=== PATIENT | female | born 1945 | race Caucasian/White ===

== ENCOUNTER 2024-07-31 19:49 | Inpatient (IN) ==
[2024-07-31 20:36] LABS: Hematocrit (blood only) 17.7 % (37.0-47.0); Hemoglobin 5.1 g/dl (12.0-16.0); Mean Corpuscular Hemoglobin 25.8 pg (25.0-34.0); Mean Corpuscular Hgb Conc 28.8 g/dL (32.0-36.0); Mean Corpuscular Volume 89.4 fL (80.0-100.0); Platelet Count 123 K/uL (130-400); RDW Coefficient of Variation 17.2 % (11.5-14.5); RDW Standard Deviation 55.1 fL (36.4-46.3); Red Blood Count 1.98 M/uL (4.20-5.40); White Blood Count 6.16 K/ul (4.8-10.8)
[2024-07-31] MEDS ORDERED: SODIUM CHLORIDE 0.9% 100 ML IV PRN (20:37)
[2024-07-31] MEDS ORDERED: SODIUM CHLORIDE 0.9% 50 ML IV PRN (20:37)
[2024-07-31 20:55] LABS: Alanine Aminotransferase 12 U/L (7-52); Albumin Globulin Ratio 1.3 (0.9-2); Albumin Level 3.4 gm/dl (3.4-5.0); Alkaline Phosphatase 92 U/L (34-104); Anion Gap 8 (3-11); Aspartate Aminotransferase 15 U/L (13-39); BUN Creatinine Ratio 12.3 (10-20); Bilirubin,Total 0.7 mg/dl (0.2-1.0); Blood Urea Nitrogen 46 mg/dl (6-23); Calcium 8.8 mg/dl (8.6-10.3); Carbon Dioxide 22 mmol/L (21-32); Chloride 110 mmol/L (98-107); Globulin 2.7 gm/dl (2.5-4.0); Glucose 410 mg/dl (70-99(Fasting)); Potassium 4.7 mmol/L (3.5-5.1); Sodium 140 mmol/L (136-145); Total Protein 6.1 gm/dl (6.0-8.3); Troponin I High Sensitivity 19.1 pg/ml (0-14)
[2024-07-31 20:59] LABS: INR 1.1 (0.9-1.1); Partial Thromboplastin Ratio 0.9; Partial Thromboplastin Time 24 Seconds (21-31); Prothrombin Time 11.4 Seconds (9.0-12.0)
--- NOTE | 2024-07-31 21:02 | Emergency Department Note ---
Impression & Plan Acute upper gastrointestinal bleeding, Anemia requiring transfusions, Thrombocytopenia, Non-ST elevation [place] (NSTEMI), CROCKETT (dyspnea on exertion), Generalized weakness, Acute kidney injury superimposed on chronic kidney disease, Hyperglycemia ED Provider Note HISTORY OF PRESENT ILLNESS: Patient is an 79-year-old female presenting with shortness of breath with exertion and bilateral lower extremity weakness. Patient reports for about the last week she has been having bilateral lower extremity weakness when she is up walking around. Reports that when she is up and walking, she is able to take only a couple steps before she becomes very weak and feels like she needs to sit down. Reports that when she is up and walking she is only able to take a few steps before she becomes significantly winded. States that she has no chest pain with the shortness of breath. Denies any shortness of breath at rest. She states that she has noted intermittent dark discoloration of her stool. She states that a few weeks ago she noticed this and took an at-home Cologuard test and it was positive. Her and her outpatient doctor were working on coordinating getting a colonoscopy set up, but they have not successfully scheduled this yet given the patient's multiple comorbidities. Patient denies any abdominal pain, nausea or vomiting. She is on Eliquis for history of paroxysmal A-fib. She does report she took her Eliquis today. Denies any dysuria or hematuria. Denies any fevers. Denies any recent sick contact exposures. ROS: as above PHYSICAL EXAM: Constitutional: Patient appears in no acute distress. HENT: Head: Normocephalic and atraumatic. Eyes: EOMI, PERRL Mouth/Throat: Mucous membranes moist. Neck: Trachea midline. Neck supple. Cardiovascular: RRR, No murmurs, rubs or gallops. Intact distal pulses. Pulmonary/Chest: No respiratory distress. Breath sounds clear and equal bilaterally. No wheezes or rales. Abdominal: Abdomen soft, no tenderness, rebound or guarding. Rectal: Chaperoned by nurse Nadine. No palpable masses or hemorrhoids on examination. No renae blood or melena. Hemoccult positive. Musculoskeletal: No edema, tenderness or deformity noted. Skin: Warm and dry. No rash, erythema, pallor or cyanosis Psychiatric: Appropriate mood and affect for situation. Neurological: Alert and keenly responsive. CN II-XII grossly intact, moving all extremities equally and fully. MDM: - Vitals signs showed hypertension. - History obtained via patient. History as above. - Chronic conditions affecting care: HTN; HLD; Afib; CKD; DM-2 - Differential diagnoses include, but are not limited to: CVA; intracranial hemorrhage; ACS; pneumonia; viral syndrome; anemia - Order placed for continuous cardiac monitoring. At this time, monitor showed rate of 80 bpm with normal sinus rhythm, per my interpretation. - External medical records reviewed. Nephrology office visit note dated 04/23/2024 was reviewed. Patient follows in their clinic for her CKD stage IV. Her baseline creatinine is 2.5-3.3. - EKG interpreted by myself showed normal sinus rhythm. Rate 74 bpm. QT 430. No acute ischemic changes. - Laboratory workup interpreted by myself showed normal WBC; anemia (Hgb 5.1); thrombocytopenia (plt 123); normal PT/INR; stable electrolyte; MANUEL CKD (Cr 3.74 - baseline around 3.3); hyperglycemia (glucose 410); elevated BUN (46); elevated troponin (19.1); normal TSH - Elevated troponin likely more demand in nature secondary to patient's profound anemia. - CXR negative for pneumonia, per my interpretation. - Viral respiratory panel negative - Patient was consented for blood. 2 units PRBCs were ordered to transfuse now. - 80 mg IV protonix ordered. - Discussion was had with case work aide about patient's case and need for admission - Hospitalist, Dr. Blas, consulted for admission. Requested that Dr. Miles be consulted for reversal agent, given patient's apixaban dosing in the setting of her GI bleed. - Discussed case with Dr. Miles at 22:35. [facility]. I have personally spent 63 minutes of critical care time in the direct management of this patient. This includes bedside care, interpretation of diagnostic studies, and testing, discussion with consultants, patient, and family members, and other required patient management activities. This 63 minutes is in excess of all separately billable procedures. ASSESSMENT AND PLAN: Diagnosis: acute upper GI bleed; anemia requiring transfusion; generalized weakness; dyspnea on exertion; MANUEL on CKD; NSTEMI; thrombocytopenia; hyperglycemia Plan: admit Past Med/Surg History Problem List (Updated 07/31/24 @ 22:52 by Chely Gray MD) Hyperglycemia (Acute) Acute kidney injury superimposed on chronic kidney disease (Acute) Generalized weakness (Acute) CROCKETT (dyspnea on exertion) (Acute) Non-ST elevation [place] (NSTEMI) (Acute) Thrombocytopenia (Acute) Anemia requiring transfusions (Acute) Acute upper gastrointestinal bleeding (Acute) Gout Type 2 diabetes mellitus with hyperglycemia Diabetic nephropathy Proteinuria, unspecified Secondary hyperparathyroidism Chronic kidney disease, stage 3b Hyperlipidemia Glaucoma Hypertension Medical History Chronic kidney disease, stage 3b Diabetic nephropathy Glaucoma Gout Hyperlipidemia Hypertension Proteinuria, unspecified Secondary hyperparathyroidism Type 2 diabetes mellitus with hyperglycemia Surgical History H/O tubal ligation History of hysterectomy Hx of cardiac cath Family History Father Black lung Mother Alzheimer disease Dementia Sister Dialysis patient Social History Smoking Status: Never smoker Hx Alcohol Use: No Hx Substance Use: No Preferred Language: Jordanian marital status: / current occupational status: retired How many Children do You have: 4 Feels Safe at Home: Yes caffeine: Yes (1-2 cups per day) Allergies Allergies Allergy/AdvReac Type Severity Reaction Status Date / Time amlodipine [From [facility]] Allergy Unknown LE edema Verified 03/05/24 14:18 glp 1 AdvReac Intermediate GI Uncoded 03/05/24 14:18 jardiance AdvReac Intermediate uti Uncoded 03/05/24 14:18 Home Meds Home Medications Medication Instructions Recorded Confirmed aspirin 81 mg chewable tablet 81 mg PO DAILY 04/16/21 04/23/24 cholecalciferol (vitamin D3) 50 50 mcg PO DAILY 04/16/21 04/23/24 mcg (2,000 unit) capsule insulin aspart U-100 100 unit/mL 1 sliding scale dose subcut 04/16/21 04/23/24 subcutaneous solution (Novolog USEASDIRECTD U-100 Insulin aspart) latanoprost 0.005 % eye drops 1 drp ophthalmic (eye) DAILY 04/16/21 04/23/24 mometasone 0.1 % topical cream 1 applic topical DAILY PRN 04/16/21 04/23/24 terconazole 0.4 % vaginal cream 1 appful vaginal QPM PRN 04/16/21 04/23/24 terazosin 2 mg capsule 2 mg PO DAILY 04/27/21 04/23/24 insulin degludec 100 unit/mL (3 50 unit subcut DAILY 10/26/21 04/23/24 mL) subcutaneous pen (Tresiba FlexTouch U-100 insulin) atorvastatin 20 mg tablet 80 mg PO DAILY 10/17/23 04/23/24 febuxostat 40 mg tablet (Uloric) 40 mg PO 3XWK 12/12/23 04/23/24 carvedilol 12.5 mg tablet See Rx Instructions PO BID 03/05/24 04/23/24 furosemide 20 mg tablet 20 mg PO 3XWK edema 03/05/24 04/23/24 nifedipine 90 mg tablet,extended 30 mg PO DAILY 03/05/24 04/23/24 release apixaban 2.5 mg tablet (Eliquis) 2.5 mg PO BID Afib 03/25/24 04/23/24 coenzyme Q10 75 mg capsule (Ultra 50 mg PO DAILY 04/23/24 04/23/24 CoQ10) garlic 300 mg capsule 1,000 mg PO BID 04/23/24 04/23/24 Previous Rx's Medication Instructions Recorded calcitriol 0.25 mcg capsule 0.25 mcg PO .COMPLEX #36 caps 12/12/23 patiromer calcium sorbitex 8.4 8.4 g PO DAILY #30 ea 03/25/24 gram oral powder packet lisinopril 5 mg tablet 5 mg PO DAILY #90 tabs 04/23/24 Results & Data (ED) Vital Signs Vital Signs - 24 hr 07/31/24 19:53 07/31/24 20:52 Temperature 36.9 C Temperature Source Temporal Artery Scan Pulse Rate 73 78 Respiratory Rate 18 Respiratory Effort / Characteristics Non-Labored Spontaneous Respiratory Depth Normal Blood Pressure 171/69 H Blood Pressure Mean 103 Pulse Oximetry 98 Oxygen Delivery Method Room Air Sepsis Recent Fever Within 48 Hours No Sepsis New/Unexplained Change in Mental Status No Sepsis Action Taken by Nursing No Action Required Laboratory Data 07/31/24 20:04 07/31/24 20:04 Lab Results 07/31/24 07/31/24 07/31/24 Range/Units 20:04 21:04 21:35 WBC 6.16 (4.8-10.8) K/ul RBC 1.98 L (4.20-5.40) M/uL Hgb 5.1 L* (12.0-16.0) g/dl Hct 17.7 L* (37.0-47.0) % MCV 89.4 (80.0-100.0) fL MCH 25.8 (25.0-34.0) pg MCHC 28.8 L (32.0-36.0) g/dL RDW Std Deviation 55.1 H (36.4-46.3) fL RDW Coeff of [place] 17.2 H (11.5-14.5) % Plt Count 123 L (130-400) K/uL MPV 12.0 (9.4-12.4) fL Immature Gran % (Auto) 0.6 % Neut % (Auto) 78.4 % Lymph % (Auto) 14.0 % [place] % (Auto) 5.7 % Eos % (Auto) 1.0 % Baso % (Auto) 0.3 % Neut # (Auto) 4.83 (1.40-6.50) K/uL Lymph # (Auto) 0.86 L (1.20-3.40) K/uL [place] # (Auto) 0.35 (0.11-0.59) K/uL Eos # (Auto) 0.06 (0.00-0.50) K/uL Baso # (Auto) 0.02 (0.00-0.20) K/uL Immature Gran # (Auto) 0.04 (0.01-0.20) K/uL Polychromasia 1+ Microcytosis Present PT 11.4 (9.0-12.0) Seconds INR 1.1 (0.9-1.1) APTT 24 (21-31) Seconds PTT Ratio 0.9 Sodium 140 (136-145) mmol/L Potassium 4.7 (3.5-5.1) mmol/L Chloride 110 H (98-107) mmol/L Carbon Dioxide 22 (21-32) mmol/L Anion Gap 8 (3-11) BUN 46 H (6-23) mg/dl Creatinine 3.74 H (0.6-1.2) mg/dl Est Cr Clr Drug Dosing Not Reportable eGFR 11.62 BUN/Creatinine Ratio 12.3 (10-20) Glucose 410 H* (70-99(Fasting)) mg/dl Calcium 8.8 (8.6-10.3) mg/dl Magnesium 2.0 (1.7-2.4) mg/dl Total Bilirubin 0.7 (0.2-1.0) mg/dl AST 15 (13-39) U/L ALT 12 (7-52) U/L Alkaline Phosphatase 92 (34-104) U/L Troponin I High Sens 19.1 H (0-14) pg/ml Total Protein 6.1 (6.0-8.3) gm/dl Albumin 3.4 (3.4-5.0) gm/dl Globulin 2.7 (2.5-4.0) gm/dl Albumin/Globulin Ratio 1.3 (0.9-2) TSH 0.925 (0.300-4.500) uIu/ml POC Stool Occult Blood Positive A (Negative) Adenovirus (PCR) Not Detected (NotDetected) B. pertussis DNA (PCR) Not Detected (NotDetected) B.parapertussis DNA PCR Not Detected (NotDetected) C. pneumoniae DNA (PCR) Not Detected (NotDetected) Coronavirus OC43 (PCR) Not Detected (NotDetected) Coronavirus HKU1 (PCR) Not Detected (NotDetected) Coronavirus 229E (PCR) Not Detected (NotDetected) SARS-CoV-2 (PCR) Not Detected (NotDetected) Coronavirus NL63 (PCR) Not Detected (NotDetected) Human Metapneumovir PCR Not Detected (NotDetected) Influenza Type A (PCR) Not Detected (NotDetected) Influenza Type B (PCR) Not Detected (NotDetected) M. pneumoniae (PCR) Not Detected (NotDetected) Parainfluenza 1 (PCR) Not Detected (NotDetected) Parainfluenza 2 (PCR) Not Detected (NotDetected) Parainfluenza 3 (PCR) Not Detected (NotDetected) Parainfluenza 4 (PCR) Not Detected (NotDetected) RSV (PCR) Not Detected (NotDetected) Entero/Rhino (PCR) Not Detected (NotDetected) Crossmatch See Detail Discharge Plan Visit Data Chief Complaint: Weakness Stated Complaint: WEAKNESS, FATIGUED, FLUCTUATING BP ED Provider: Chely Gray Discharge Problem: Acute upper gastrointestinal bleeding, Anemia requiring transfusions, Thrombocytopenia, Non-ST elevation [place] (NSTEMI), CROCKETT (dyspnea on exertion), Generalized weakness, Acute kidney injury superimposed on chronic kidney disease, Hyperglycemia Forms Stand Alone Forms: [facility] [employer] Prescriptions Prescriptions: No Action patiromer calcium sorbitex 8.4 gram powder in packet 8.4 g PO DAILY Qty: 30 2RF Eliquis 2.5 mg tablet 2.5 mg PO BID terazosin 2 mg capsule 2 mg PO DAILY cholecalciferol (vitamin D3) 50 mcg (2,000 unit) capsule 50 mcg PO DAILY mometasone 0.1 % cream 1 applic topical DAILY PRN terconazole 0.4 % cream 1 appful vaginal QPM PRN latanoprost 0.005 % drops 1 drp ophthalmic (eye) DAILY insulin aspart U-100 [Novolog U-100 Insulin aspart] 100 unit/mL solution 1 sliding scale dose subcut USEASDIRECTD aspirin 81 mg tablet,chewable 81 mg PO DAILY Tresiba FlexTouch U-100 100 unit/mL (3 mL) insulin pen 50 unit subcut DAILY atorvastatin 20 mg tablet 80 mg PO DAILY febuxostat [Uloric] 40 mg tablet 40 mg PO 3XWK garlic 300 mg capsule 1,000 mg PO BID nifedipine 90 mg tablet extended release 30 mg PO DAILY furosemide 20 mg tablet 20 mg PO 3XWK calcitriol 0.25 mcg capsule 0.25 mcg PO .COMPLEX Qty: 36 2RF Rx Instructions: 0.25 mcg orally every monday, monday, and monday; carvedilol 12.5 mg tablet See Rx Instructions PO BID Rx Instructions: 25 mg QAM and 12.5 mg in the evening; must administer with a meal/food Ultra CoQ10 75 mg capsule 50 mg PO DAILY lisinopril 5 mg tablet 5 mg PO DAILY Qty: 90 3RF Referrals Referrals: Uriel Patel [Outside Practitioners] -
[2024-07-31 21:05] LABS: Thyroid Stimulating Hormone 0.925 uIu/ml (0.300-4.500)
[2024-07-31 21:28] LABS: Adenovirus PCR Not Detected (NotDetected); Bordetella parapertussis PCR Not Detected (NotDetected); Bordetella pertussis PCR Not Detected (NotDetected); Chlamydia pneumoniae PCR Not Detected (NotDetected); Coronavirus 229E PCR Not Detected (NotDetected); Coronavirus CoV-2 (COVID19)PCR Not Detected (NotDetected); Coronavirus HKU1 PCR Not Detected (NotDetected); Coronavirus NL63 PCR Not Detected (NotDetected); Coronavirus OC43PCR Not Detected (NotDetected); Human Metapneumovirus PCR Not Detected (NotDetected); Influenza A PCR Not Detected (NotDetected); Influenza B PCR Not Detected (NotDetected); Mycoplasma pneumoniae PCR Not Detected (NotDetected); Parainfluenza Virus 1 PCR Not Detected (NotDetected); Parainfluenza Virus 2 PCR Not Detected (NotDetected); Parainfluenza Virus 3 PCR Not Detected (NotDetected); Parainfluenza Virus 4 PCR Not Detected (NotDetected); Respiratory Syncytial VirusPCR Not Detected (NotDetected); Rhinovirus/Enterovirus PCR Not Detected (NotDetected)
[2024-07-31 22:18] LABS: Basophils # (auto) 0.02 K/uL (0.00-0.20); Basophils % (auto) 0.3 %; Eosinophils # (auto) 0.06 K/uL (0.00-0.50); Immature Granulocytes # (auto) 0.04 K/uL (0.01-0.20); Immature Granulocytes % (auto) 0.6 %; Lymphocytes # (auto) 0.86 K/uL (1.20-3.40); Microcytosis Present; Monocytes # (auto) 0.35 K/uL (0.11-0.59); Monocytes % (auto) 5.7 %; Neutrophils # (auto) 4.83 K/uL (1.40-6.50); Neutrophils % (auto) 78.4 %; Polychromasia 1+
[2024-07-31] MEDS: KCENTRA (500unit vial) 2000 units IVP IV SCH (23:11)
[2024-07-31] MEDS: PANTOprazole 80 MG in DEXTROSE 5% 100 ML IV STA (23:20)
--- NOTE | 2024-07-31 23:38 | History & Physical Report ---
Date of Service July 31, 2024 Assessment & Plan (1) Anemia requiring transfusions: (2) Type 2 diabetes mellitus with hyperglycemia: (3) Acute kidney injury superimposed on chronic kidney disease: (4) Generalized weakness: Plan Prachi Rosa is a 79 year-old female with a medical history significant for CKD, gout, T2DM, HTN, paroxysmal atrial fibrillation who presented to the ED for weakness in her bilateral legs for the past week. Anemia | GI Bleed | Iron Deficiency -Hgb 5.1 in ED, hemoccult positive and patient reports dark stools and positive cologuard since starting Eliquis a few months ago for paroxysmal atrial fibrillation -ED provider discussed with anti-coagulation clinic, Kcentra ordered and given in ED -Signed blood consent obtained in ED, located in paper chart -2 units PRBCs ordered, will recheck H&H after 1 unit and q6h after completion of ordered PRBCs. -Will keep NPO, Protonix IV BID ordered. GI consulted, appreciate recommendations -Elevated BNP on admission, may require small dose of Lasix after transfusions. No maintenance IV fluids indicated in the meantime while BP remaining stable -Iron studies obtained prior to transfusion, iron: 15, transferrin % sat: 4. Consider supplementing with IV venofer. MANUEL on CKD -Follows with Dr. Reed/[facility] Nephrology -Baseline Cr 2.5-3.3, Cr today was 3.74 -BNP elevated 558 in ED, +2 pitting edema of bilateral lower legs, is prescribed PRN Lasix by cardiology -Avoid nephrotoxic medications -Home meds include Lisinopril, Lokelma CAD | S/P Pacemaker Placement | Paroxysmal Atrial Fibrillation -Follows with Dr. Hernandez and Dr. Childress -Per last nephrology note, last echo (2023) showed LVEF 55-60%. -Has known carotid stenosis, this is monitored regularly and per patient no plans for intervention at this time -Continue statin, lisinopril. Takes Lasix PRN. May need to further med rec with patient- reports not consistently taking BP meds and unsure if still taking nifedipine, carvedilol -Hold aspirin, Eliquis -Will require cardiology follow up for plan for anticoagulation moving forward Elevated Troponin -Trop 19.1, likely due to demand ischemia from anemia -Trend to peak. Monitor on telemetry, currently asymptomatic Type 2 DM -Insulin dependent at home -Hyperglycemic in ED, BSG 410 -Will order lantus (at reduced dose while NPO) and SSI, adjust as needed Secondary Hyperparathyroidism- Continue calcitriol 0.25 MWF Admit to: PCU VTE Prophylaxis: contraindicated Diet: NPO Code Status: Full Code History of Present Illness Primary Care Provider: NO PCP Prachi Rosa is a 79 year-old female with a medical history significant for CKD, gout, T2DM, HTN, paroxysmal atrial fibrillation who presented to the ED for weakness in her bilateral legs for the past week. Patient states that she had a pacemaker placed earlier this year, was later found to have paroxysmal atrial fibrillation and was subsequently started on Eliquis a few months ago. Since then, has had some intermittent dark stools and reportedly had a positive cologuard test in the same time period. Patient endorses feeling weak, states when she ambulates and then rests/sits down, it feels that her heart is "beating fast" for several minutes. Denies chest pain or SOB, but endorses a cough at times. No abdominal pain/nausea/vomiting. ED Course: -CXR, hemoccult + -CBC, CMP, TSH, BNP, Type/cross -Kcentra administered Allergies Allergy/AdvReac Type Severity Reaction Status Date / Time amlodipine [From Norvasc] Allergy Unknown LE edema Verified 03/05/24 14:18 empagliflozin AdvReac Intermediate UTI Verified 08/01/24 01:58 [From Jardiance] semaglutide [From Ozempic] AdvReac Intermediate Gastrointestinal Verified 08/01/24 01:59 Upset Home Medications Medication Instructions Recorded Confirmed Type aspirin 81 mg chewable tablet 81 mg PO DAILY 04/16/21 04/23/24 History cholecalciferol (vitamin D3) 50 50 mcg PO DAILY 04/16/21 04/23/24 History mcg (2,000 unit) capsule insulin aspart U-100 100 unit/mL 1 sliding scale dose subcut 04/16/21 04/23/24 History subcutaneous solution (Novolog USEASDIRECTD U-100 Insulin aspart) latanoprost 0.005 % eye drops 1 drp ophthalmic (eye) DAILY 04/16/21 04/23/24 History mometasone 0.1 % topical cream 1 applic topical DAILY PRN 04/16/21 04/23/24 History terconazole 0.4 % vaginal cream 1 appful vaginal QPM PRN 04/16/21 04/23/24 History terazosin 2 mg capsule 2 mg PO DAILY 04/27/21 04/23/24 History insulin degludec 100 unit/mL (3 50 unit subcut DAILY 10/26/21 04/23/24 History mL) subcutaneous pen (Tresiba FlexTouch U-100 insulin) atorvastatin 20 mg tablet 80 mg PO DAILY 10/17/23 04/23/24 History calcitriol 0.25 mcg capsule 0.25 mcg PO .COMPLEX #36 caps 12/12/23 04/23/24 Rx febuxostat 40 mg tablet (Uloric) 40 mg PO 3XWK 12/12/23 04/23/24 History carvedilol 12.5 mg tablet See Rx Instructions PO BID 03/05/24 04/23/24 History furosemide 20 mg tablet 20 mg PO 3XWK edema 03/05/24 04/23/24 History nifedipine 90 mg tablet,extended 30 mg PO DAILY 03/05/24 04/23/24 History release apixaban 2.5 mg tablet (Eliquis) 2.5 mg PO BID Afib 03/25/24 04/23/24 History patiromer calcium sorbitex 8.4 8.4 g PO DAILY #30 ea 03/25/24 04/23/24 Rx gram oral powder packet coenzyme Q10 75 mg capsule (Ultra 50 mg PO DAILY 04/23/24 04/23/24 History CoQ10) garlic 300 mg capsule 1,000 mg PO BID 04/23/24 04/23/24 History lisinopril 5 mg tablet 5 mg PO DAILY #90 tabs 04/23/24 04/23/24 Rx Past Med/Surg History Problem List (Updated 08/01/24 @ 14:45 by Sandra Del Real PA-C) Iron deficiency anemia Hyperglycemia (Acute) Acute kidney injury superimposed on chronic kidney disease (Acute) Generalized weakness (Acute) CROCKETT (dyspnea on exertion) (Acute) Non-ST elevation [place] (NSTEMI) (Acute) Thrombocytopenia (Acute) Anemia requiring transfusions (Acute) Acute upper gastrointestinal bleeding (Acute) Gout Type 2 diabetes mellitus with hyperglycemia Diabetic nephropathy Proteinuria, unspecified Secondary hyperparathyroidism Chronic kidney disease, stage 3b Hyperlipidemia Glaucoma Hypertension Surgical History Hx of cardiac cath 06/2019 History of hysterectomy 1994 H/O tubal ligation 1969 Family History Father Black lung Mother Alzheimer disease Dementia Sister Dialysis patient Social History Smoking Status: Never smoker Hx Alcohol Use: No Hx Substance Use: No Preferred Language: Cuban Communication Ability: Effective Beauty Counselor Required: No Beliefs That Will Affect Care: None marital status: / Current Living Situation: Family current occupational status: retired How many Children do You have: 4 Feels Safe at Home: Yes Safety Concerns: Feels Safe At This Time caffeine: Yes (1-2 cups per day) Assistive Devices: None Review of Systems Review of Systems: As per above Physical Exam Constitutional: WD/WN, vitals as above Eyes: + anicteric sclerae; no conjunctival abn ormality ENMT: Ears: no external ear abnormality Nose: no external nose abnormality Moist mucous membranes Respiratory: Normal respiratory efforts. Few crackles, no rhonchi. good air movement Cardiovascular: Rate/Rhythm: regular rate and regular rhythm +2 pitting edema of bilateral lower extr emities Gastrointestinal (Abdomen): Inspection/Auscultation: abdomen normal to inspection; abdomen not distended Percussion/Palpation: abdomen soft; abdomen nontender Musculoskeletal: Moves all limbs independently Skin: no rashes, warm and dry Neurologic: No focal deficits appreciated Psychiatric: A+Ox3, euthymic affect Results & Data Results & Data Vital Signs (Past 12 Hours) Vital Signs Temp Pulse Resp BP Pulse Ox O2 Del Method 07/31/24 20:52 78 07/31/24 19:53 36.9 C 73 18 171/69 H 98 Room Air Supervising Physician Co-Signing Physician Notes Attending addendum: I have physically seen this patient, have supervised the medical residents activities, and agree with the H&P unless as otherwise noted. Assessment and Plan: Anemia requiring transfusion- Hemoglobin 5.1 on admission, Hemoccult positive, with dark stools On Eliquis for paroxysmal atrial fibrillation, and has noted gradual change in stools and in that time Kcentra authorized and given in the ED for reversal Received 2 units PRBCs now, and recheck H&H 1 hour after second unit Target hemoglobin to be around age Given Protonix in the ED, continue Protonix 40 mg IV twice daily N.p.o. Will give Lasix in between transfusions as needed Consult gastroenterology Acute kidney injury superimposed on CKD- Creatinine 3.74, with base 2.60 Likely should improve with volume associated with change fusion Follow serially Diabetes mellitus- Glucose 410 on admission Placing on Lantus and SSI as noted CAD/history of pacer/PAF- Follows in outpatient setting with cardiology Holding anticoagulation, as noted Will consult cardiology for ongoing in this complex patient CODE STATUS: Full code Resident Activity Tracking Resident Involvement: Resident Care Provided Care Provided: Adult Hospital Medicine
[2024-08-01 00:07] LABS: Ferritin 8.5 ng/ml (8-388)
[2024-08-01] MEDS ORDERED: CARBOHYDRATES FOR HYPOGLYCEMIA PO PRN (01:43)
[2024-08-01] MEDS ORDERED: DEXTROSE 50% 50 ML SYRINGE IV PRN (01:43)
[2024-08-01] MEDS ORDERED: GLUCOSE 10 TAB/TUBE PO PRN (01:43)
[2024-08-01] MEDS ORDERED: GLUCOSE 40% GEL 15 GM TUBE PO PRN (01:43)
[2024-08-01] MEDS ORDERED: ONDANSETRON INJ 2 MG/ML 2 ML VIAL IV PRN (01:43)
[2024-08-01] MEDS ORDERED: GLUCAGON FOR INJ 1 MG VIAL SQ PRN (01:43)
[2024-08-01] MEDS ORDERED: ACETAMINOPHEN 325 MG TAB PO PRN (01:43)
[2024-08-01] MEDS: LANTUS PER UNIT CHARGE SQ SCH (02:13)
--- NOTE | 2024-08-01 02:17 | XRay Report ---
Exam(s): XR CXR 1 VIEW EXAM: XR Chest, 1 View CLINICAL HISTORY: Reason for exam: Weakness. TECHNIQUE: Frontal view of the chest. COMPARISON: No relevant prior studies available. FINDINGS: Lungs: No consolidation. Pleural space: No pleural effusion is seen. No pneumothorax. Heart: A pacemaker is noted. The heart is top normal in size.. Mediastinum: There is uncoiling calcification thoracic aorta.. Bones/joints: There are postoperative changes involving the right humerus. IMPRESSION: No acute pulmonary disease. Electronically signed by: Isaiah Del Valle MD 08/01/24 02:16 AM
[2024-08-01] MEDS: INSULIN ASPART PER UNIT CHARGE SC SCH (06:52)
[2024-08-01 07:59] LABS: Basophils # (auto) 0.02 K/uL (0.00-0.20); Basophils % (auto) 0.3 %; Eosinophils # (auto) 0.04 K/uL (0.00-0.50); Eosinophils % (auto) 0.6 %; Hematocrit (blood only) 24.7 % (37.0-47.0); Hemoglobin 7.5 g/dl (12.0-16.0); Immature Granulocytes # (auto) 0.04 K/uL (0.01-0.20); Immature Granulocytes % (auto) 0.6 %; Lymphocytes % (auto) 14.4 %; Mean Corpuscular Hemoglobin 27.2 pg (25.0-34.0); Mean Corpuscular Hgb Conc 30.4 g/dL (32.0-36.0); Mean Corpuscular Volume 89.5 fL (80.0-100.0); Mean Platelet Volume 11.9 fL (9.4-12.4); Monocytes # (auto) 0.35 K/uL (0.11-0.59); Monocytes % (auto) 5.6 %; Neutrophils % (auto) 78.5 %; Nucleated RBC # (auto) 0.02 K/uL (0.00-0.12); Nucleated RBC % (auto) 0.3 %; Platelet Count 117 K/uL (130-400); RDW Coefficient of Variation 15.9 % (11.5-14.5); RDW Standard Deviation 51.5 fL (36.4-46.3); Red Blood Count 2.76 M/uL (4.20-5.40); White Blood Count 6.25 K/ul (4.8-10.8)
[2024-08-01 08:22] LABS: Polychromasia 1+
[2024-08-01 08:27] LABS: Albumin Globulin Ratio 1.2 (0.9-2); Albumin Level 3.3 gm/dl (3.4-5.0); BUN Creatinine Ratio 13.3 (10-20); Bilirubin,Total 1.1 mg/dl (0.2-1.0); Calcium 8.6 mg/dl (8.6-10.3); Creatinine Clr Calc Pharmacy 14.5 ml/min; Globulin 2.8 gm/dl (2.5-4.0); Potassium 4.4 mmol/L (3.5-5.1); Total Protein 6.1 gm/dl (6.0-8.3)
[2024-08-01] MEDS ORDERED: carvediloL 12.5 MG TAB PO SCH (09:00)
[2024-08-01] MEDS: lisinopril 5 MG TAB PO SCH (09:29)
[2024-08-01] MEDS: FEBUXOSTAT 40 MG TABLET PO SCH (09:29)
[2024-08-01] MEDS: PANTOprazole 40 MG/10 ML SYR IV SCH (09:30)
[2024-08-01] MEDS: LATANOPROST 0.005% OP SOLN 2.5 ML BTL OP SCH (09:37)
[2024-08-01] MEDS: PATIROMER CALCIUM SORBITEX 8.4 GM PACK PO SCH (09:37)
[2024-08-01 10:49] LABS: Hematocrit (blood only) 24.3 % (37.0-47.0); Hemoglobin 7.4 g/dl (12.0-16.0)
--- NOTE | 2024-08-01 12:49 | Electrocardiogram Report ---
Test Reason : Blood Pressure : */* mmHG Vent. Rate : 74 BPM Atrial Rate : 74 BPM P-R Int : 180 ms QRS Dur : 120 ms QT Int : 430 ms P-R-T Axes : 49 -33 70 degrees QTcB Int : 477 ms Normal sinus rhythm with sinus arrhythmia Left axis deviation Right bundle branch block Abnormal ECG Confirmed by Magdiel Alcocer ([id number]) on 08/01/2024 12:49:23 PM Referred By: REFERRED SELF Confirmed By: Magdiel Alcocer
[2024-08-01] MEDS ORDERED: SODIUM CHLORIDE 0.9% 50 ML IV PRN (13:28)
[2024-08-01] MEDS ORDERED: SODIUM CHLORIDE 0.9% 100 ML IV PRN (13:28)
--- NOTE | 2024-08-01 14:39 | Gastrointestinal Consultation ---
Date of Consultation August 01, 2024 Assessment & Plan (1) Iron deficiency anemia: -Discussed options with patient and Dr. Blair as well as the hospitalist provider. Given current elevation of troponin and lack of overt GI bleeding, would advise she defer EGD/colonoscopy to be done as an outpatient. Continue to monitor H/H and treatment of iron deficiency per primary team. OK to continue PPI prophylaxis, however no overt signs of active GI bleeding at present. Supervising Physician Co-Signing Physician Notes Iron deficiency anemia. Intermittent dark stool since started on Eliquis. Comes in now with a hemoglobin of 5. She has elevated troponins and elevated delta troponins. [place] potentially be demand ischemia. However iron deficiency is not typically an urgent need for endoscopic evaluation. Until her potential cardiac ischemic issue is resolved or corrected with decrease in demand I do not think a colon preparation with his physical demands is in her best interest at this point. Recommend correction of anemia iron for iron deficiency. Potential outpatient endoscopic evaluation. If the patient remains as an inpatient on Monday potentially could be done at that time. Should have an EGD colonoscopy. Often this situation AVMs of the small intestines or upper GI tract account for the dark stools and the iron deficiency. Colon neoplasia of the right colon not excluded. History of Present Illness Reason for Consultation: Anemia, dark stools since beginning Eliquis Attending Physician: Artur Carl MD History of Present Illness Prachi Rosa is a 79 year-old female with a medical history significant for CKD, gout, T2DM, HTN, paroxysmal atrial fibrillation who presented to the ED for weakness in her bilateral legs for the past week. She was placed on Eliquis in February due to afib. She notes she recently has been having intermittent dark brown stools and a cologuard that was positive. She was noted to have a hemoglobin of 5.1. She has been given 2 units of PRBCs and now has an H/H of 7.4/24.3. She has an elevated troponin. She has never had a colonoscopy. She thinks she may have had an EGD but is not sure. She denies abdominal pain, nausea, vomiting, or hematochezia at present. She is resting comfortably in bed at the time our our evaluation. Iron level 15. Allergies Allergy/AdvReac Type Severity Reaction Status Date / Time amlodipine [From Norvasc] Allergy Unknown LE edema Verified 03/05/24 14:18 empagliflozin AdvReac Intermediate UTI Verified 08/01/24 01:58 [From Jardiance] semaglutide [From Ozempic] AdvReac Intermediate Gastrointestinal Verified 08/01/24 01:59 Upset Home Medications Medication Instructions Recorded Confirmed Type aspirin 81 mg chewable tablet 81 mg PO DAILY 04/16/21 04/23/24 History cholecalciferol (vitamin D3) 50 50 mcg PO DAILY 04/16/21 04/23/24 History mcg (2,000 unit) capsule insulin aspart U-100 100 unit/mL 1 sliding scale dose subcut 04/16/21 04/23/24 History subcutaneous solution (Novolog USEASDIRECTD U-100 Insulin aspart) latanoprost 0.005 % eye drops 1 drp ophthalmic (eye) DAILY 04/16/21 04/23/24 H istory mometasone 0.1 % topical cream 1 applic topical DAILY PRN 04/16/21 04/23/24 History terconazole 0.4 % vaginal cream 1 appful vaginal QPM PRN 04/16/21 04/23/24 History terazosin 2 mg capsule 2 mg PO DAILY 04/27/21 04/23/24 History insulin degludec 100 unit/mL (3 50 unit subcut DAILY 10/26/21 04/23/24 History mL) subcutaneous pen (Tresiba FlexTouch U-100 insulin) atorvastatin 20 mg tablet 80 mg PO DAILY 10/17/23 04/23/24 History calcitriol 0.25 mcg capsule 0.25 mcg PO .COMPLEX #36 caps 12/12/23 04/23/24 Rx febuxostat 40 mg tablet (Uloric) 40 mg PO 3XWK 12/12/23 04/23/24 History carvedilol 12.5 mg tablet See Rx Instructions PO BID 03/05/24 04/23/24 History furosemide 20 mg tablet 20 mg PO 3XWK edema 03/05/24 04/23/24 History nifedipine 90 mg tablet,extended 30 mg PO DAILY 03/05/24 04/23/24 History release apixaban 2.5 mg tablet (Eliquis) 2.5 mg PO BID Afib 03/25/24 04/23/24 History patiromer calcium sorbitex 8.4 8.4 g PO DAILY #30 ea 03/25/24 04/23/24 Rx gram oral powder packet coenzyme Q10 75 mg capsule (Ultra 50 mg PO DAILY 04/23/24 04/23/24 History CoQ10) garlic 300 mg capsule 1,000 mg PO BID 04/23/24 04/23/24 History lisinopril 5 mg tablet 5 mg PO DAILY #90 tabs 04/23/24 04/23/24 Rx Patient History Surgical History Hx of cardiac cath 06/2019 History of hysterectomy 1994 H/O tubal ligation 1969 Family History Father Black lung Mother Alzheimer disease Dementia Sister Dialysis patient Social History Smoking Status: Never smoker Hx Alcohol Use: No Hx Substance Use: No Preferred Language: Latvian Communication Ability: Effective Parts Analyst Required: No Beliefs That Will Affect Care: None marital status: / Current Living Situation: Family current occupational status: retired How many Children do You have: 4 Feels Safe at Home: Yes Safety Concerns: Feels Safe At This Time caffeine: Yes (1-2 cups per day) Assistive Devices: None Review of Systems Constitutional: no fever and no chills Gastrointestinal: no abdominal pain, no diarrhea/loose stools and no blood in stools Physical Exam Constitutional: well developed Respiratory: normal respiratory effort Gastrointestinal (Abdomen): normal bowel sounds, soft, nontender, no hep atosplenomegaly Results & Data Vital Signs (Past 12 Hours) Vital Signs Temp Pulse Pulse Resp BP BP Pulse Ox 08/01/24 14:29 37 C 63 18 188/98 H 96 08/01/24 14:13 37 C 63 18 188/98 H 96 08/01/24 13:04 36.6 C 67 18 190/85 H 94 08/01/24 09:38 08/01/24 09:30 187/77 H 08/01/24 09:30 187/77 H 08/01/24 09:21 62 22 08/01/24 08:15 65 22 08/01/24 07:46 63 08/01/24 06:26 64 16 174/77 H 94 08/01/24 06:03 63 20 174/77 H 93 08/01/24 04:50 36.9 C 65 16 189/103 H 95 08/01/24 03:50 36.7 C 66 18 170/73 H 97 08/01/24 03:49 68 20 154/80 H 99 08/01/24 03:20 37.2 C 69 18 168/85 H 94 08/01/24 03:16 08/01/24 03:05 37.0 C 65 18 192/80 H 96 08/01/24 02:52 219/88 H 08/01/24 02:46 36.6 C 81 21 245/78 H 95 Pulse Ox O2 Del Method O2 Del Method 08/01/24 14:29 08/01/24 14:13 08/01/24 13:04 Room Air 08/01/24 09:38 Room Air 08/01/24 09:30 08/01/24 09:30 08/01/24 09:21 08/01/24 08:15 08/01/24 07:46 08/01/24 06:26 Room Air 08/01/24 06:03 08/01/24 04:50 08/01/24 03:50 08/01/24 03:49 Room Air 08/01/24 03:20 08/01/24 03:16 94 Room Air 08/01/24 03:05 08/01/24 02:52 08/01/24 02:46 PG Care Time/CCT Total # of Minutes Spent Total Time Spent with Patient: Total time spent is greater than 50% in coordination of care (as documented) at patient's floor/unit and/or counseling patient: Coding Level of Care Code 99176 INT INP/OBS CARE 3/75MIN Diagnoses Iron deficiency anemia D50.9
[2024-08-01 14:41] LABS: Appearance Urine Cloudy (Clear); Bacteria Urine Automated None Seen (None Seen); Bilirubin Urine Negative (Negative); Blood Urine 1+ (Negative); Color Urine Yellow; Glucose Urine UA 3+ (Negative); Ketones Urine Negative (Negative); Leukocyte Esterase Urine 2+ (Negative); Nitrite Urine Negative (Negative); Protein Urine 4+ (Negative); RBC Urine Automated 0-2 /hpf (0-2); Specific Gravity Urine 1.021 (1.000-1.030); Urobilinogen Urine Negative (Negative); WBC Urine Automated >50 /hpf (0-5); pH Urine 6.5 (4.5-7.5)
[2024-08-01] MEDS: FUROSEMIDE INJ 20 MG/2 ML VIAL IV ONE ×2 (14:45→15:51)
[2024-08-01] MEDS: carvediloL 12.5 MG TAB PO SCH (15:19)
[2024-08-01] MEDS: LABETALOL HCL IV 5 MG/ML 20ML IV STA ×2 (15:20→17:22)
--- NOTE | 2024-08-01 15:40 | Hospitalist Progress Note ---
Date of Service August 01, 2024 Assessment & Plan (1) Iron deficiency anemia: Plan: Prachi is an 79-year-old female history of A-fib on Eliquis, NSTEMI with mild disease on cath 2019, CKD, DM who presents with suspected progressive chronic GI bleed and anemia with Hemoccult positive stool and hemoglobin 5.0. She has not had any hematemesis or epigastric pain. Chronic GI bleed, iron deficiency anemia Suspect that this is chronic as she is not tachycardic or hypotensive. Hemoglobin last 10.5 01/2024 prior to Eliquis Post 2 units of transfusion jagdish appropriately from 5.1 up to 7.5 and remained stable on recheck at 7.4. Despite this does continue to have some demand ischemia without chest pain and a stable EKG. Given underlying ischemia recommends liberalize transfusion threshold of 8.0, 1 additional unit ordered Patient with a history of lower extremity edema, HFpEF. Diuresis ordered along with blood. Chest x-ray did not show any acute CHF on admission Iron studies consistent with severe iron deficiency anemia. Would benefit from Venofer infusion prior to discharge however will defer on the same day that blood is given GI consulted. Given underlying demand ischemia and relatively stable hemoglobin do not plan to do EGD/colonoscopy at this time, recommend following up as outpatient if hemoglobin remained stable. PPI twice daily continued Type II DM Hyperglycemic this morning, SSI narrowed and glargine 15 units twice daily continued Goal range [id number] Clears until diet able to be progressed to DM2 Demand ischemia, CAD, history of pacemaker placed History of NSTEMI with mild obstructive disease on cath in 2019 Clinically without chest pain at any point and no acute EKG changes Troponin trended, slow rise suggestive of ongoing demand. Transfusion threshold liberalized as noted. Continue to trend Patient with elevated BNP, although no pulmonary edema, and lower extremity swelling. Suspect mild volume overload. Diuresis has been ordered with blood, additional 20 mg ordered this afternoon Carvedilol was initially held. She is not hypotensive and is at risk of beta- cj withdrawal. She has been given a one-time dose of labetalol for blood pressure control in addition to her diuresis, and carvedilol has been resumed Hypertension Borderline renal artery stenosis on prior Dopplers, no intervention recommended at that time BP is elevated however this is in the setting of holding her antihype rtensives. Beta-cj resumed as above. Patient is not a great historian of her cardiac meds however thinks that she is taking carvedilol/nifedipine which is listed on her last cardiology note. Will continue these. DVT prophylaxis: Anticoagulation deferred due to GI bleeding CODE STATUS: Full code Disposition: PCU Diet: Clears, will advance to type II DM tomorrow if hemoglobin is stable and no plans for endoscopy (2) Type 2 diabetes mellitus with hyperglycemia: (3) Chronic kidney disease, stage 3b: (4) Non-ST elevation [place] (NSTEMI): (5) Acute kidney injury superimposed on chronic kidney disease: Admission and Anticipated Discharge Date Admission Date: July 31, 2024 Subjective Seen at the bedside. Endorses that she has had dark stools and positive Cologuard as outpatient this started in February with her Eliquis. Has not had a colonoscopy at any point. Denies family history of colorectal cancer. No chest pain at any point during admission and denies chest pain overnight. Despite this troponin has risen slightly suspect demand. She did have mild coronary disease on prior cath. Denies chest pain, chest pressure, lightheadedness, dizziness. Denies fever/chills. No abdominal pain. No vomiting, no hematemesis Discussed with GI. Given troponin and lack of acute hemorrhage would not recommend patient undergo prep at this time and follow-up for outpatient EGD/colonoscopy, is stable to do so. Appreciate recommendations. Physical Exam Physical Exam: General: A&Ox3. NAD. Cooperative. HEENT: Atraumatic, normocephalic. Vision and hearing grossly intact Pulm: Diminished with crackles in the bases. No wheezing. Symmetrical chest rise. No increased work of breathing. No respiratory distress. Cardiac: irir, +sm. Radial pulses intact and symmetrical. Abdominal: Nontender, nondistended, soft. BS present. Results & Data Results & Data Vital Signs (Past 12 Hours) Vital Signs Temp Pulse Pulse Resp BP BP Pulse Ox 08/01/24 15:20 67 203/74 H 08/01/24 15:00 36.7 C 62 20 197/92 H 96 08/01/24 14:45 37.1 C 65 18 203/74 H 96 08/01/24 14:44 36.6 C 66 18 192/84 H 97 08/01/24 14:29 37 C 63 18 188/98 H 96 08/01/24 14:13 37 C 63 18 188/98 H 96 08/01/24 13:04 36.6 C 67 18 190/85 H 94 08/01/24 09:38 08/01/24 09:30 187/77 H 08/01/24 09:30 187/77 H 08/01/24 09:21 62 22 08/01/24 08:15 65 22 08/01/24 07:46 63 08/01/24 06:26 64 16 174/77 H 94 08/01/24 06:03 63 20 174/77 H 93 08/01/24 04:50 36.9 C 65 16 189/103 H 95 08/01/24 03:50 36.7 C 66 18 170/73 H 97 08/01/24 03:49 68 20 154/80 H 99 O2 Del Method 08/01/24 15:20 08/01/24 15:00 08/01/24 14:45 08/01/24 14:44 08/01/24 14:29 08/01/24 14:13 08/01/24 13:04 Room Air 08/01/24 09:38 Room Air 08/01/24 09:30 08/01/24 09:30 08/01/24 09:21 08/01/24 08:15 08/01/24 07:46 08/01/24 06:26 Room Air 08/01/24 06:03 08/01/24 04:50 08/01/24 03:50 08/01/24 03:49 Room Air PG Care Time/CCT Total # of Minutes Spent Total Time Spent with Patient: Total time spent is greater than 50% in coordination of care (as documented) at patient's floor/unit and/or counseling patient: Coding Level of Care Code 26254 SUB INP/OBS CARE 3/50MIN Diagnoses Iron deficiency anemia D50.9 Type 2 diabetes mellitus with hyperglycemia E11.65 Chronic kidney disease, stage 3b N18.32 Non-ST elevation OK (NSTEMI) I21.4 Acute kidney injury superimposed on chronic kidney disease N17.9; N18.9
[2024-08-01] MEDS: NIFEdipine EXTENDED REL 30 MG TABCR PO STA (17:44)
[2024-08-01] MEDS: NIFEdipine EXTENDED REL 30 MG TABCR PO SCH (18:24)
[2024-08-01 19:46] LABS: Hematocrit (blood only) 27.9 % (37.0-47.0); Hemoglobin 8.7 g/dl (12.0-16.0)
[2024-08-01] MEDS: hydrALAZINE HCL 25 MG TAB PO ONE (19:51)
[2024-08-02 06:26] LABS: Basophils # (auto) 0.03 K/uL (0.00-0.20); Basophils % (auto) 0.3 %; Eosinophils # (auto) 0.12 K/uL (0.00-0.50); Eosinophils % (auto) 1.2 %; Hematocrit (blood only) 25.7 % (37.0-47.0); Immature Granulocytes # (auto) 0.03 K/uL (0.01-0.20); Immature Granulocytes % (auto) 0.3 %; Lymphocytes # (auto) 1.27 K/uL (1.20-3.40); Lymphocytes % (auto) 13.2 %; Mean Corpuscular Hemoglobin 27.3 pg (25.0-34.0); Mean Corpuscular Hgb Conc 31.1 g/dL (32.0-36.0); Mean Corpuscular Volume 87.7 fL (80.0-100.0); Mean Platelet Volume 11.9 fL (9.4-12.4); Monocytes # (auto) 0.67 K/uL (0.11-0.59); Monocytes % (auto) 6.9 %; Neutrophils # (auto) 7.53 K/uL (1.40-6.50); Neutrophils % (auto) 78.1 %; Nucleated RBC # (auto) 0.02 K/uL (0.00-0.12); Nucleated RBC % (auto) 0.2 %; Platelet Count 124 K/uL (130-400); RDW Coefficient of Variation 15.9 % (11.5-14.5); RDW Standard Deviation 50.4 fL (36.4-46.3); Red Blood Count 2.93 M/uL (4.20-5.40); White Blood Count 9.65 K/ul (4.8-10.8)
[2024-08-02] MEDS ORDERED: Nursing to Pharmacy Communication SCH (06:45)
[2024-08-02 06:47] LABS: Albumin Globulin Ratio 1.1 (0.9-2); BUN Creatinine Ratio 12.6 (10-20); Bilirubin,Total 1.7 mg/dl (0.2-1.0); Calcium 8.4 mg/dl (8.6-10.3); Globulin 2.7 gm/dl (2.5-4.0); Total Protein 5.7 gm/dl (6.0-8.3)
[2024-08-02] MEDS: INSULIN ASPART PER UNIT CHARGE SC SCH (08:26)
[2024-08-02] MEDS: IRON SUCROSE 300 MG in SODIUM CHLORIDE 0.9% 250 ML IV ONE (09:34)
[2024-08-02] MEDS: NIFEdipine EXTENDED REL 30 MG TABCR PO SCH (09:56)
--- NOTE | 2024-08-02 10:11 | Hospitalist Progress Note ---
Date of Service August 02, 2024 Assessment & Plan (1) Iron deficiency anemia: Plan: Prachi is an 79-year-old female history of A-fib on Eliquis, NSTEMI with mild disease on cath 2018, CKD, DM who presents with suspected progressive chronic GI bleed and anemia with Hemoccult positive stool and hemoglobin 5.0. She has not had any hematemesis or epigastric pain. Chronic GI bleed, iron deficiency anemia Suspect that this is chronic as she is not tachycardic or hypotensive. Hemoglobin last 10.5 01/2024 prior to Eliquis Post 2 units of transfusion jagdish appropriately from 5.1 up to 7.5 and remained stable on recheck at 7.4. Patient was ordered 1 additional unit for underlying demand ischemia, her hemoglobin 1/ jagdish to 8.0. No clinical bleeding Patient with a history of lower extremity edema, HFpEF. Diuresis Continued. Chest x-ray did not show any acute CHF on admission. Lungs are clear GI consulted. Given underlying demand ischemia and relatively stable hemoglobin do not plan to do EGD/colonoscopy at this time, recommend following up as outpatient if hemoglobin remained stable. PPI twice daily continued Hemoglobin uptrending and appears stable, 8.0 on 08/02. No indication for transfusion at this time, therefore will give Venofer infusion x 1. May receive up with 3 total doses during hospitalization Type II DM Basal bolus regimen continued, adequate control on 08/02 Goal range [id number] Clears until diet able to be progressed to DM2 Demand ischemia, CAD, history of pacemaker placed History of NSTEMI with mild obstructive disease on cath in 2019 Clinically without chest pain at any point and no acute EKG changes Troponin trended, slow rise suggestive of ongoing demand. Transfusion threshold of 8.0. uptrending, patient is without chest pain 1/3 and is without exponential rise. Serial EKG ordered. Paced atrial rhythm without acute ST segment changes, low amplitude T waves but without acute inversions. Chest pain-free . Carvedilol and Procardia continued, BP normal 1/3 Lasix IV given morning of 08/02, still slightly volume up although with a venous stasis component but is also receiving several IV infusions Troponin continued until peak, troponin high-sensitivity 146 this morning but no clinical or EKG signs of ACS, still suspect this is demand may have been worsened by her hypertension 1/2, well-controlled following addition of multiple medications as otherwise noted. echo ordered. Hypertension Borderline renal artery stenosis on prior Dopplers, no intervention recommended at that time Normalized following carvedilol, nifedipine and addition of one-time dose of oral hydralazine. If hypertensive can continue oral hydralazine and use labetalol IV if needed for acute control. No indication for this on morning assessment 1/ DVT prophylaxis: Anticoagulation deferred due to GI bleeding CODE STATUS: Full code Disposition: PCU Diet: Clears, anticipate advancing to DM2 this afternoon if spot hemoglobin check remains stable (2) Type 2 diabetes mellitus with hyperglycemia: (3) Chronic kidney disease, stage 3b: (4) Non-ST elevation ND (NSTEMI): (5) Acute kidney injury superimposed on chronic kidney disease: Admission and Anticipated Discharge Date Admission Date: July 31, 2024 Subjective Seen at the bedside. Did well overnight. No questions or concerns. No chest pain, chest pressure, shortness of breath, lightheadedness, or dizziness. She reports she does feel better today and feels like she could potentially go home and feels more back to her normal. Denies any bleeding overnight. She is not short of breath but does have a slight dry cough which is not productive Physical Exam Physical Exam: General: A&Ox3. NAD. Cooperative. HEENT: Atraumatic, normocephalic. Vision and hearing grossly intact Pulm: Diminished with crackles in the bases. No wheezing. Symmetrical chest rise. No increased work of breathing. No respiratory distress. Cardiac: irir, +sm. Radial pulses intact and symmetrical. Abdominal: Nontender, nondistended, soft. BS present. Results & Data Results & Data Vital Signs (Past 12 Hours) Vital Signs Temp Pulse Resp BP Pulse Ox O2 Del Method 08/02/24 09:38 67 08/02/24 07:38 37.1 C 64 18 116/61 90 Room Air 08/02/24 02:48 37 C 66 18 133/60 91 Room Air 08/01/24 23:17 36.8 C 105 H 18 122/63 91 Room Air PG Care Time/CCT Total # of Minutes Spent Total Time Spent with Patient: Total time spent is greater than 50% in coordination of care (as documented) at patient's floor/unit and/or counseling patient: Coding Level of Care Code 16583 SUB INP/OBS CARE 3/50MIN Diagnoses Iron deficiency anemia D50.9 Type 2 diabetes mellitus with hyperglycemia E11.65 Chronic kidney disease, stage 3b N18.32 Non-ST elevation ND (NSTEMI) I21.4 Acute kidney injury superimposed on chronic kidney disease N17.9; N18.9
--- NOTE | 2024-08-02 15:27 | Electrocardiogram Report ---
Test Reason : Blood Pressure : */* mmHG Vent. Rate : 64 BPM Atrial Rate : 64 BPM P-R Int : 210 ms QRS Dur : 120 ms QT Int : 440 ms P-R-T Axes : 70 -43 22 degrees QTcB Int : 453 ms Atrial-paced rhythm with prolonged AV conduction in a pattern of bigeminy Left axis deviation Right bundle branch block Abnormal ECG When compared with ECG of 31-Jul-2024 20:02, Electronic atrial pacemaker has replaced Sinus rhythm Nonspecific T wave abnormality now evident in Inferior leads Confirmed by Magdiel Alcocer ([id number]) on 08/02/2024 3:27:21 PM Referred By: REFERRED SELF Confirmed By: Magdiel Alcocer
--- NOTE | 2024-08-02 16:11 | XCELERA ---
[id number]
[2024-08-03 07:56] LABS: Basophils # (auto) 0.05 K/uL (0.00-0.20); Basophils % (auto) 0.5 %; Eosinophils # (auto) 0.25 K/uL (0.00-0.50); Eosinophils % (auto) 2.5 %; Hematocrit (blood only) 29.1 % (37.0-47.0); Immature Granulocytes # (auto) 0.07 K/uL (0.01-0.20); Immature Granulocytes % (auto) 0.7 %; Lymphocytes # (auto) 1.27 K/uL (1.20-3.40); Lymphocytes % (auto) 12.5 %; Mean Corpuscular Hemoglobin 27.4 pg (25.0-34.0); Mean Corpuscular Hgb Conc 30.9 g/dL (32.0-36.0); Mean Corpuscular Volume 88.4 fL (80.0-100.0); Monocytes # (auto) 0.76 K/uL (0.11-0.59); Monocytes % (auto) 7.5 %; Neutrophils # (auto) 7.78 K/uL (1.40-6.50); Neutrophils % (auto) 76.3 %; Nucleated RBC # (auto) 0.02 K/uL (0.00-0.12); Nucleated RBC % (auto) 0.2 %; Platelet Count 164 K/uL (130-400); RDW Coefficient of Variation 16.2 % (11.5-14.5); RDW Standard Deviation 52.8 fL (36.4-46.3); Red Blood Count 3.29 M/uL (4.20-5.40); White Blood Count 10.18 K/ul (4.8-10.8)
[2024-08-03 08:33] LABS: Albumin Globulin Ratio 1.1 (0.9-2); Albumin Level 3.3 gm/dl (3.4-5.0); BUN Creatinine Ratio 13.2 (10-20); Bilirubin,Total 1.4 mg/dl (0.2-1.0); Calcium 8.6 mg/dl (8.6-10.3); Creatinine Clr Calc Pharmacy 14.6 ml/min; Potassium 3.9 mmol/L (3.5-5.1); Total Protein 6.3 gm/dl (6.0-8.3)
[2024-08-03] MEDS: FUROSEMIDE 40 MG/4 ML VIAL IV SCH (09:17)
[2024-08-03] MEDS: SODIUM CHLORIDE 0.9% 500 ML IV ONE (10:09)
[2024-08-03] MEDS: IRON SUCROSE 300 MG in SODIUM CHLORIDE 0.9% 250 ML IV ONE (10:59)
[2024-08-03] MEDS: BENZONATATE 100 MG CAPSULE PO PRN (12:55)
[2024-08-03 15:49] LABS: BUN Creatinine Ratio 12.5 (10-20); Calcium 8.2 mg/dl (8.6-10.3); Creatinine Clr Calc Pharmacy 13.8 ml/min; Potassium 4.1 mmol/L (3.5-5.1)
[2024-08-03 16:00] LABS: Troponin I High Sensitivity 75.8 pg/ml (0-14)
[2024-08-04 04:16] LABS: Basophils # (auto) 0.06 K/uL (0.00-0.20); Basophils % (auto) 0.7 %; Eosinophils # (auto) 0.24 K/uL (0.00-0.50); Eosinophils % (auto) 2.8 %; Hematocrit (blood only) 26.3 % (37.0-47.0); Immature Granulocytes # (auto) 0.08 K/uL (0.01-0.20); Immature Granulocytes % (auto) 0.9 %; Lymphocytes # (auto) 1.16 K/uL (1.20-3.40); Lymphocytes % (auto) 13.6 %; Mean Corpuscular Hgb Conc 30.4 g/dL (32.0-36.0); Mean Corpuscular Volume 88.9 fL (80.0-100.0); Mean Platelet Volume 11.6 fL (9.4-12.4); Monocytes # (auto) 0.78 K/uL (0.11-0.59); Monocytes % (auto) 9.1 %; Neutrophils # (auto) 6.21 K/uL (1.40-6.50); Neutrophils % (auto) 72.9 %; Nucleated RBC # (auto) 0.02 K/uL (0.00-0.12); Nucleated RBC % (auto) 0.2 %; Platelet Count 151 K/uL (130-400); RDW Coefficient of Variation 16.4 % (11.5-14.5); RDW Standard Deviation 53.1 fL (36.4-46.3); Red Blood Count 2.96 M/uL (4.20-5.40); White Blood Count 8.53 K/ul (4.8-10.8)
[2024-08-04 04:34] LABS: BUN Creatinine Ratio 13.5 (10-20); Calcium 8.3 mg/dl (8.6-10.3); Creatinine Clr Calc Pharmacy 13.4 ml/min
--- NOTE | 2024-08-04 09:46 | Hospitalist Progress Note ---
Date of Service August 04, 2024 Assessment & Plan (1) Iron deficiency anemia: Plan: Prachi is an 79-year-old female history of A-fib on Eliquis, NSTEMI with mild disease on cath 2018, CKD, DM who presents with suspected progressive chronic GI bleed and anemia with Hemoccult positive stool and hemoglobin 5.0. She has not had any hematemesis or epigastric pain. Chronic GI bleed, iron deficiency anemia Suspect that this is chronic as she is not tachycardic or hypotensive. Hemoglobin last 10.5 01/2024 prior to Eliquis Post 2 units of transfusion jagdish appropriately from 5.1 up to 7.5 and remained stable on recheck at 7.4. Patient was ordered 1 additional unit for underlying demand ischemia, her hemoglobin 08/02 jagdish to 8.0. No clinical bleeding Patient with a history of lower extremity edema, HFpEF. Diuresis Continued. Chest x-ray did not show any acute CHF on admission. Lungs are clear GI consulted. Given underlying demand ischemia and relatively stable hemoglobin do not plan to do EGD/colonoscopy at this time, recommend following up as outpatient if hemoglobin remained stable. PPI twice daily continued Globin slightly downtrending no clinical bleeding, within 1 point of change on 08/04. Will continue to trend. Final dose of Venofer given 08/04 MANUEL Leg swelling due to nifedipine and worsened. Clinically has hit dry status and Lasix was held, creatinine slightly uptrending and lisinopril has also been held. Oral hydration encouraged Due to intolerance of nifedipine due to worsening leg swellings will try transitioning this to oral hydralazine. Cannot use GORDY titration or ARB due to renal function at this time. She has good BP control on the nifedipine but unfortunately leg swelling will likely preclude ongoing use Type II DM Basal bolus regimen continued, adequate control on 08/02 Goal range [id number] Clears until diet able to be progressed to DM2 Demand ischemia, CAD, history of pacemaker placed History of NSTEMI with mild obstructive disease on cath in 2019 Clinically without chest pain at any point and no acute EKG changes Troponin trended, slow rise suggestive of ongoing demand. Transfusion threshold of 8.0. uptrending, patient is without chest pain /3 and is without exponential rise. Serial EKG ordered. Paced atrial rhythm without acute ST segment changes, low amplitude T waves but without acute inversions. Chest pain-free Carvedilol continued Procardia discontinued due to recurrent leg swelling. Good BP control on this however is not going to tolerate from a lower extremity edema standpoint. Will try substituting hydralazine Hypertension Borderline renal artery stenosis on prior Dopplers, no intervention recommended at that time Lisinopril held, hydralazine pending, nifedipine discontinued, carvedilol continued Disposition planning: Continues with elevated creatinine, troponin has now down trended. She is doing well. Requires ongoing monitoring for MANUEL and hemoglobin stability, once creatinine is downtrending and hemoglobin remained stable can progress to discharge DVT prophylaxis: Anticoagulation deferred due to GI bleeding CODE STATUS: Full code Disposition: PCU (2) Type 2 diabetes mellitus with hyperglycemia: (3) Chronic kidney disease, stage 3b: (4) Non-ST elevation SD (NSTEMI): (5) Acute kidney injury superimposed on chronic kidney disease: Admission and Anticipated Discharge Date Admission Date: July 31, 2024 Subjective Seen at the bedside. Feels well today. No lightheadedness or dizziness. Somewhat disheartened that her blood counts went down, but has not had bleeding overnight. No chest pain or chest pressure. Is encouraged that troponin has finally improved and near normalized. Is peeing normally. Has noticed significant swelling in her legs and starting the nifedipine Physical Exam Physical Exam: General: A&Ox3. NAD. Cooperative. HEENT: Atraumatic, normocephalic. Vision and hearing grossly intact Pulm: Diminished with crackles in the bases. No wheezing. Symmetrical chest rise. No increased work of breathing. No respiratory distress. Cardiac: irir, +sm. Radial pulses intact and symmetrical. Abdominal: Nontender, nondistended, soft. BS present. Extremities: Increasing to plus edema of the lower extremity bilat Results & Data Results & Data Vital Signs (Past 12 Hours) Vital Signs Temp Pulse Pulse Resp BP Pulse Ox O2 Del Method 08/04/24 09:32 36.7 C 69 18 144/66 H 95 Room Air 08/04/24 07:11 64 08/04/24 03:03 36.8 C 64 20 127/65 92 Room Air 08/03/24 23:53 36.8 C 70 20 130/69 92 Room Air 08/03/24 21:54 65 PG Care Time/CCT Total # of Minutes Spent Total Time Spent with Patient: Total time spent is greater than 50% in coordination of care (as documented) at patient's floor/unit and/or counseling patient: Coding Level of Care Code 06000 SUB INP/OBS CARE 3/50MIN Diagnoses Iron deficiency anemia D50.9 Type 2 diabetes mellitus with hyperglycemia E11.65 Chronic kidney disease, stage 3b N18.32 Non-ST elevation SD (NSTEMI) I21.4 Acute kidney injury superimposed on chronic kidney disease N17.9; N18.9
[2024-08-04] MEDS: IRON SUCROSE 300 MG in SODIUM CHLORIDE 0.9% 250 ML IV ONE (10:30)
--- NOTE | 2024-08-04 21:04 | Billing Data ---
Date of Service August 04, 2024 Coding Level of Care Code 84418 INT INP/OBS CARE
[2024-08-05] MEDS: hydrALAZINE 10 MG TAB PO SCH (07:45)
[2024-08-05 08:43] LABS: Basophils # (auto) 0.06 K/uL (0.00-0.20); Basophils % (auto) 0.8 %; Eosinophils # (auto) 0.25 K/uL (0.00-0.50); Eosinophils % (auto) 3.3 %; Hematocrit (blood only) 28.3 % (37.0-47.0); Hemoglobin 8.6 g/dl (12.0-16.0); Immature Granulocytes # (auto) 0.12 K/uL (0.01-0.20); Immature Granulocytes % (auto) 1.6 %; Lymphocytes % (auto) 15.8 %; Mean Corpuscular Hemoglobin 27.2 pg (25.0-34.0); Mean Corpuscular Hgb Conc 30.4 g/dL (32.0-36.0); Mean Corpuscular Volume 89.6 fL (80.0-100.0); Mean Platelet Volume 11.2 fL (9.4-12.4); Monocytes # (auto) 0.48 K/uL (0.11-0.59); Monocytes % (auto) 6.3 %; Neutrophils % (auto) 72.2 %; Nucleated RBC # (auto) 0.02 K/uL (0.00-0.12); Nucleated RBC % (auto) 0.3 %; Platelet Count 187 K/uL (130-400); RDW Coefficient of Variation 16.7 % (11.5-14.5); RDW Standard Deviation 53.8 fL (36.4-46.3); Red Blood Count 3.16 M/uL (4.20-5.40); White Blood Count 7.61 K/ul (4.8-10.8)
[2024-08-05 08:57] LABS: BUN Creatinine Ratio 13.6 (10-20); Calcium 8.2 mg/dl (8.6-10.3); Creatinine Clr Calc Pharmacy 11.7 ml/min; Potassium 4.2 mmol/L (3.5-5.1)
--- NOTE | 2024-08-05 09:17 | Hospitalist Progress Note ---
Date of Service August 05, 2024 Assessment & Plan (1) Anemia requiring transfusions: (2) Type 2 diabetes mellitus with hyperglycemia: (3) Acute kidney injury superimposed on chronic kidney disease: (4) Generalized weakness: Plan Prachi is an 79-year-old female history of A-fib on Eliquis, NSTEMI with mild disease on cath 2019, CKD, DM who presents with suspected progressive chronic GI bleed and anemia with Hemoccult positive stool and hemoglobin 5.0. She has not had any hematemesis or epigastric pain. Chronic GI bleed, iron deficiency anemia Suspect that this is chronic as she is not tachycardic or hypotensive. Hemoglobin last 10.5 01/2024 prior to Eliquis Post 2 units of transfusion jagdish appropriately from 5.1 up to 7.5 and remained stable on recheck at 7.4. Patient was ordered 1 additional unit for underlying demand ischemia, her hemoglobin 1/3 jagdish to 8.0. No clinical bleeding - Hx HFpEF, no overt edema but +dyspnea and crackles. Recieved lasix with blood with improvement. Lasix was held for increasing creatinine GI consulted. Given underlying demand ischemia and relatively stable hemoglobin do not plan to do EGD/colonoscopy at this time, recommend following up as outpatient if hemoglobin remained stable. PPI twice daily continued Hemoglobin remained stable 08/05 MANUEL Baseline creatinine around 2.53 Creatinine uptrending 4.19 08/05 Nephrology consulted. Had responded well to diuresis but then with uptrending creatinine this was held. Creatinine is uptrending and does have some stasis component likely from nifedipine, but is with increased leg swelling although no hypoxia today. Mobilization strategies for edema recommended and will add leg wraps versus SCDs after Dopplers Seen by nephrology. Overall slightly volume up, reasonable to diuresis tomorrow and will defer diuresis today and follow BMP. Appreciate recommendations and care Type II DM Basal bolus regimen continued, adequate control on 08/02 Goal range [id number] Clears until diet able to be progressed to DM2 Demand ischemia, CAD, history of pacemaker, A-fib History of NSTEMI with mild obstructive disease on cath in 2019 Clinically without chest pain at any point and no acute EKG changes Troponin trended, slow rise suggestive of ongoing demand. Transfusion threshold of 8.0. uptrending, patient is without chest pain 1/3 and is without exponential rise. Serial EKG ordered. Paced atrial rhythm without acute ST segment changes, low amplitude T waves but without acute inversions. Chest pain-free Carvedilol continued Procardia discontinued due to recurrent leg swelling. Good BP control on this however is not going to tolerate from a lower extremity edema standpoint. Hydralazine oral substituted, continue to follow No present bradycardia Dopplers with no evidence of DVT Eliquis for A-fib held for GI bleed Hypertension Borderline renal artery stenosis on prior Dopplers, no intervention recommended at that time Lisinopril held, hydralazine pending, nifedipine discontinued (improved BP but did not tolerate with recurrent edema), carvedilol continued DVT prophylaxis: Anticoagulation deferred due to GI bleeding CODE STATUS: Full code Disposition: PCU Admission and Anticipated Discharge Date Admission Date: July 31, 2024 Subjective Seen at the bedside. Is a little bit short of breath on exertion, no shortness of breath at rest. Is concerned about her kidneys and the plan moving forward, expresses appreciation for care. Bowel movements last 24 hours have been brown without melena. Denies chest pain chest pressure. Denies abdominal pain Physical Exam Physical Exam: General: A&Ox3. NAD. Cooperative. HEENT: Atraumatic, normocephalic. Vision and hearing grossly intact Pulm: Diminished. No rales. Slight crackles at the bases no wheezing. Symmetrical chest rise. No increased work of breathing. No respiratory distress. Cardiac: irir, +sm. Radial pulses intact and symmetrical. Abdominal: Nontender, nondistended, soft. BS present. Extremities: 3+ edema of the lower extremity bilat Results & Data Results & Data Vital Signs (Past 12 Hours) Vital Signs Temp Pulse Pulse Resp BP BP Pulse Ox 08/05/24 07:54 36.5 C 70 18 135/60 96 08/05/24 07:45 08/05/24 07:00 65 08/05/24 02:53 36.6 C 64 20 136/68 94 08/04/24 23:08 37.0 C 68 18 114/59 L 91 08/04/24 23:00 60 O2 Del Method 08/05/24 07:54 Room Air 08/05/24 07:45 Room Air 08/05/24 07:00 08/05/24 02:53 Room Air 08/04/24 23:08 Room Air 08/04/24 23:00 PG Care Time/CCT Total # of Minutes Spent Total Time Spent with Patient: Total time spent is greater than 50% in coordination of care (as documented) at patient's floor/unit and/or counseling patient: Coding Level of Care Code 96553 SUB INP/OBS CARE 3/50MIN Diagnoses Anemia requiring transfusions D64.9 Type 2 diabetes mellitus with hyperglycemia E11.65 Acute kidney injury superimposed on chronic kidney disease N17.9; N18.9 Generalized weakness R53.1
--- NOTE | 2024-08-05 10:50 | Nephrology Consultation ---
Date of Consultation August 05, 2024 Assessment & Plan (1) Acute kidney injury superimposed on chronic kidney disease: (2) Generalized weakness: (3) CROCKETT (dyspnea on exertion): (4) Non-ST elevation DE (NSTEMI): (5) Anemia requiring transfusions: (6) Secondary hyperparathyroidism: (7) Hypertension: Plan 79 year-old female with stage IV CKD, b/l cr 2.6 to 3.0 mg/dl with proteinuria with h/o hypertension, diabetes, admitted to the hospital with anemia and generalized weakness and volume overload. Received diuretics with improvement in BP and volume status but stopped as kidney function worsened. On admission cr was 3.7 which slightly improved over last few days but again worsened to 4.2 this morning. BP improved. Clinically seems volume overloaded but denies significant shortness of breath. Overall she is net positive, lower extremity edema worsen. -- Okay to continue to hold diuretic today as no respiratory distress but she is seem to be slightly volume overloaded, has gained weight and net positive. Continue to hold GORDY inhibitor with MANUEL, bilateral renal artery stenosis and history of hyperkalemia. -- Monitor kidney function, accurate intake, output, aim for net negative. If remain positive, may need to resume diuretic. -- with underlying advanced CKD, she does have risk factor for further worsening of kidney function. No indication for dialysis at this time. Thank you for allowing me to participate in your patient's care. It was a pleasure to see Prachi. History of Present Illness Reason for Consultation: MANUEL, CKD, volume overload Attending Physician: Artur Carl MD History of Present Illness Ms. Prachi Rosa is a 79 year-old female with past medical history significant for stage IV CKD, hypertension, diabetes, admitted to the hospital with SOB, volume overload and generalized weakness and found to have significant anemia and GI bleeding. Nephrology consult was requested for management of MANUEL and volume overload with history of advanced CKD. EMR records were reviewed in detail during patient's visit. Prachi presented to ED with generalized weakness and weakness in her bilateral lower extremities. In ER she was noted to have hemoglobin 5.1. Creatinine was 3.7 slightly higher than her baseline but over the last few days cr was staying around 3.3-3.6 mg/dl but worsened significantly to 4.2 mg/dl this morning. UA with proteinuria but no hematuria. She was clinically thought to be volume overloaded with lower extremity edema and shortness of breath and given Lasix. Lower extremity edema was thought to be due to nifedipine which was stopped yesterday. Lisinopril 5 mg was stopped. She reports decent urine output but less than when she takes Lasix. At home she was taking Lasix once or twice a week. Troponin was elevated but now trending down. Seen by GI and deferred EGD or colonoscopy at this time as hemoglobin improved without any ongoing bleeding. She reports exertional shortness of breath but no shortness of breath at rest but feels like overall she is volume overloaded. Since admission she is total 1.7 L positive. Her weight has been slowly going up. Has significant bilateral lower extremity edema. Stage IV CKD baseline creatinine lately around 3.0 mg/dl with history of hypertension, diabetes and possibly some contribution from renovascular disease with history of bilateral renal artery stenosis, did not require any intervention as blood pressure has been generally well-controlled. She reports overall feeling well this morning however she does feel she is heavier than her usual well with worsening of lower extremity edema and exertional shortness of breath but denied any shortness of breath at rest or lying down. Allergies Allergy/AdvReac Type Severity Reaction Status Date / Time amlodipine [From Norvas] Allergy Unknown LE edema Verified 03/05/24 14:18 empagliflozin AdvReac Intermediate UTI Verified 08/01/24 01:58 [From Jardiance] semaglutide [From Ozempic] AdvReac Intermediate Gastrointestinal Verified 08/01/24 01:59 Upset Home Medications Medication Instructions Recorded Confirmed Type aspirin 81 mg chewable tablet 81 mg PO DAILY 04/16/21 04/23/24 History cholecalciferol (vitamin D3) 50 50 mcg PO DAILY 04/16/21 04/23/24 History mcg (2,000 unit) capsule insulin aspart U-100 100 unit/mL 1 sliding scale dose subcut 04/16/21 04/23/24 History subcutaneous solution (Novolog USEASDIRECTD U-100 Insulin aspart) latanoprost 0.005 % eye drops 1 drp ophthalmic (eye) DAILY 04/16/21 04/23/24 History mometasone 0.1 % topical cream 1 applic topical DAILY PRN 04/16/21 04/23/24 History terconazole 0.4 % vaginal cream 1 appful vaginal QPM PRN 04/16/21 04/23/24 History terazosin 2 mg capsule 2 mg PO DAILY 04/27/21 04/23/24 History insulin degludec 100 unit/mL (3 50 unit subcut DAILY 10/26/21 04/23/24 History mL) subcutaneous pen (Tresiba FlexTouch U-100 insulin) atorvastatin 20 mg tablet 80 mg PO DAILY 10/17/23 04/23/24 History calcitriol 0.25 mcg capsule 0.25 mcg PO .COMPLEX #36 caps 12/12/23 04/23/24 Rx febuxostat 40 mg tablet (Uloric) 40 mg PO 3XWK 12/12/23 04/23/24 History carvedilol 12.5 mg tablet See Rx Instructions PO BID 03/05/24 04/23/24 History furosemide 20 mg tablet 20 mg PO 3XWK edema 03/05/24 04/23/24 History nifedipine 90 mg tablet,extended 30 mg PO DAILY 03/05/24 04/23/24 History release apixaban 2.5 mg tablet (Eliquis) 2.5 mg PO BID Afib 03/25/24 04/23/24 History patiromer calcium sorbitex 8.4 8.4 g PO DAILY #30 ea 03/25/24 04/23/24 Rx gram oral powder packet coenzyme Q10 75 mg capsule (Ultra 50 mg PO DAILY 04/23/24 04/23/24 History CoQ10) garlic 300 mg capsule 1,000 mg PO BID 04/23/24 04/23/24 History lisinopril 5 mg tablet 5 mg PO DAILY #90 tabs 04/23/24 04/23/24 Rx Patient History Surgical History Hx of cardiac cath 06/2019 History of hysterectomy 1994 H/O tubal ligation 1968 Family History Father Black lung Mother Alzheimer disease Dementia Sister Dialysis patient Social History Smoking Status: Never smoker Hx Alcohol Use: No Hx Substance Use: No Preferred Language: Slovak Communication Ability: Effective Division Leader Required: No Beliefs That Will Affect Care: None marital status: / Current Living Situation: Family current occupational status: retired How many Children do You have: 4 Feels Safe at Home: Yes Safety Concerns: Feels Safe At This Time caffeine: Yes (1-2 cups per day) Assistive Devices: None Review of Systems Review of Systems: Detail ROS was done and positives and negatives were mentioned above. Physical Exam Constitutional: WD/WN, vitals as above no acute distress Eyes: + anicteric sclerae Neck: normal visual inspection Respiratory: normal respiratory effort; no respiratory distress Au scultation: + crackles Cardiovascular: Rate/Rhythm: regular rate and regular rhythm Heart Sounds: normal S1 and normal S2 Extremities: + edema (2 to 3 + b/l LE edema.) Gastrointestinal (Abdomen): Inspection/Auscultation: abdomen normal to inspection Percussion/Palpation: abdomen soft; abdomen nontender Musculoskeletal: Extremities: extremities normal to inspection Skin: no rashes, warm and dry Neurologic: no focal motor deficits Psychiatric: Orientation: alert and oriented x 3 Affect: euthymic affect Results & Data Vital Signs (Past 12 Hours) Vital Signs Temp Pulse Pulse Resp BP BP Pulse Ox 08/05/24 07:54 36.5 C 70 18 135/60 96 08/05/24 07:45 08/05/24 07:00 65 08/05/24 02:53 36.6 C 64 20 136/68 94 08/04/24 23:08 37.0 C 68 18 114/59 L 91 08/04/24 23:00 60 O2 Del Method 08/05/24 07:54 Room Air 08/05/24 07:45 Room Air 08/05/24 07:00 08/05/24 02:53 Room Air 08/04/24 23:08 Room Air 08/04/24 23:00 PG Care Time/CCT Total # of Minutes Spent Total Time Spent with Patient: Total time spent is greater than 50% in coordination of care (as documented) at patient's floor/unit and/or counseling patient: Coding Level of Care Code 70709 INT INP/OBS CARE 3/75MIN Diagnoses Acute kidney injury superimposed on chronic kidney disease N17.9; N18.9 Generalized weakness R53.1 CROCKETT (dyspnea on exertion) R06.09 Non-ST elevation DE (NSTEMI) I21.4 Anemia requiring transfusions D64.9 Secondary hyperparathyroidism N25.81 Hypertension I10
--- NOTE | 2024-08-05 11:22 | Ultrasound Report ---
BILATERAL LOWER EXTREMITY VENOUS DOPPLER HISTORY: r/o DVT COMPARISON STUDY: None. FINDINGS: There is normal compressibility, flow, and augmentation within the bilateral lower extremit y deep venous systems. IMPRESSION: No DVT within the right or left lower extremity. ACT 112: Negative or not required by law. Electronically signed by: Hermes Arias 08/05/2024 11:21 AM
--- NOTE | 2024-08-05 11:28 | XRay Report ---
XR chest 1V not portable CLINICAL HISTORY: ?developing CHF TECHNIQUE: Single frontal radiograph of the chest was obtained. Comparison: Comparison is made to chest radiograph on 07/31/2014 FINDINGS: Lines and tubes are stable. Cardiomegaly is noted. The aortic arch is calcified. Prominence and cepha lization of the vasculature is seen. Small left pleural effusion cannot be excluded. IMPRESSION: Cardiomegaly and mild pulmonary edema. This represents an increase from the prior exam. Small left pl eural effusion cannot be excluded. ACT 112: Negative or not required by law. Electronically signed by: Javier Puri M.D. 08/05/2024 11:27 AM
[2024-08-05] MEDS: LANTUS PER UNIT CHARGE SQ SCH (21:25)
[2024-08-06 07:27] LABS: Basophils # (auto) 0.05 K/uL (0.00-0.20); Basophils % (auto) 0.7 %; Eosinophils # (auto) 0.24 K/uL (0.00-0.50); Eosinophils % (auto) 3.6 %; Hematocrit (blood only) 28.7 % (37.0-47.0); Hemoglobin 8.7 g/dl (12.0-16.0); Immature Granulocytes # (auto) 0.12 K/uL (0.01-0.20); Immature Granulocytes % (auto) 1.8 %; Lymphocytes # (auto) 1.09 K/uL (1.20-3.40); Lymphocytes % (auto) 16.1 %; Mean Corpuscular Hemoglobin 27.1 pg (25.0-34.0); Mean Corpuscular Hgb Conc 30.3 g/dL (32.0-36.0); Mean Corpuscular Volume 89.4 fL (80.0-100.0); Mean Platelet Volume 11.2 fL (9.4-12.4); Monocytes # (auto) 0.49 K/uL (0.11-0.59); Monocytes % (auto) 7.2 %; Neutrophils # (auto) 4.77 K/uL (1.40-6.50); Neutrophils % (auto) 70.6 %; Platelet Count 172 K/uL (130-400); RDW Coefficient of Variation 17.3 % (11.5-14.5); RDW Standard Deviation 54.1 fL (36.4-46.3); Red Blood Count 3.21 M/uL (4.20-5.40); White Blood Count 6.76 K/ul (4.8-10.8)
[2024-08-06 07:40] LABS: BUN Creatinine Ratio 15.3 (10-20); Calcium 8.4 mg/dl (8.6-10.3); Creatinine Clr Calc Pharmacy 12.6 ml/min; Potassium 4.8 mmol/L (3.5-5.1)
--- NOTE | 2024-08-06 08:30 | Hospitalist Progress Note ---
Date of Service August 06, 2024 Assessment & Plan (1) Anemia requiring transfusions: (2) Type 2 diabetes mellitus with hyperglycemia: (3) Acute kidney injury superimposed on chronic kidney disease: (4) Generalized weakness: Plan Prachi is an 79-year-old female history of A-fib on Eliquis, NSTEMI with mild disease on cath 2019, CKD, DM who presents with suspected progressive chronic GI bleed and anemia with Hemoccult positive stool and hemoglobin 5.0. She has not had any hematemesis or epigastric pain. Chronic GI bleed, iron deficiency anemia Suspect that this is chronic as she is not tachycardic or hypotensive. Hemoglobin last 10.5 01/2024 prior to Eliquis Post 2 units of transfusion jagdish appropriately from 5.1 up to 7.5 and remained stable on recheck at 7.4. Patient was ordered 1 additional unit for underlying demand ischemia, her hemoglobin 1/3 jagdish to 8.0. No clinical bleeding - Hx HFpEF, no overt edema but +dyspnea and crackles. Recieved lasix with blood with improvement. Lasix was held for increasing creatinine GI consulted. Given underlying demand ischemia and relatively stable hemoglobin do not plan to do EGD/colonoscopy at this time, recommend following up as outpatient if hemoglobin remained stable. PPI twice daily continued Hemoglobin remained stable 08/05. Eliquis remains held AoC HfpEF - Volume up. +Pulm edema on CXR. +LE swelling. lasix initially held for rising Cr, however is clearly volume up todya - Lasix resumed. Nephrology following, switch to daily. Appreciate recommendations target 1-2L negative per day. - Nifedipine discontinued. Hydralazine PO substituted. Above goal today. Dose increased. - Strict I&Os - Low sodium diet MANUEL Baseline creatinine around 2.53. - Remains above baseline 08/06 Nephrology consulted. Had responded well to diuresis but then with uptrending creatinine this was held. Creatinine is uptrending and does have some stasis component likely from nifedipine, but is with increased leg swelling aand volume overload as noted Nephrology following. Appreciate recommendations and care Type II DM Basal bolus regimen continued, adequate control on 08/02 Goal range [id number]. SSI loosened 1/ for borderling hypoglycemia Clears until diet able to be progressed to DM2 Demand ischemia, CAD, history of pacemaker, A-fib History of NSTEMI with mild obstructive disease on cath in 2019 Eliquis for A-fib held for GI bleed - Trop downtrended with transfusion and care above. No chest pain at any point. No ischemic changes. Suspected due to demand Hypertension Borderline renal artery stenosis on prior Dopplers, no intervention recommended at that time Lisinopril held, hydralazine titrated nifedipine discontinued (improved BP but did not tolerate with recurrent edema), carvedilol continued DVT prophylaxis: Anticoagulation deferred due to GI bleeding CODE STATUS: Full code Disposition: PCU Admission and Anticipated Discharge Date Admission Date: July 31, 2024 Subjective Clinically volume up. leg swelling persists. continues to be mildly dyspneic on exertion, no hypoxia. No chest pain. BMs x3 since yesterday, all brown. No abdominal pain. Son kevin [phone] updated. Physical Exam Physical Exam: General: A&Ox3. NAD. Cooperative. HEENT: Atraumatic, normocephalic. Vision and hearing grossly intact Pulm: Diminished. +basilar crackles. No hypoxia Cardiac: irir, +sm. Radial pulses intact and symmetrical. Abdominal: Nontender, nondistended, soft. BS present. Extremities: 3+ edema of the lower extremity bilat Results & Data Results & Data Vital Signs (Past 12 Hours) Vital Signs Temp Pulse Pulse Resp BP BP Pulse Ox 08/06/24 07:45 36.7 C 63 18 206/42 H 98 08/06/24 04:34 36.6 C 67 18 170/67 H 93 08/06/24 01:23 172/68 H 08/05/24 23:00 75 08/05/24 22:46 37.0 C 75 18 187/72 H 95 08/05/24 21:30 08/05/24 20:55 37.0 C 68 18 170/73 H 97 O2 Del Method 08/06/24 07:45 Room Air 08/06/24 04:34 Room Air 08/06/24 01:23 08/05/24 23:00 08/05/24 22:46 Room Air 08/05/24 21:30 Room Air 08/05/24 20:55 Room Air PG Care Time/CCT Total # of Minutes Spent Total Time Spent with Patient: Total time spent is greater than 50% in coordination of care (as documented) at patient's floor/unit and/or counseling patient: Coding Level of Care Code 03769 SUB INP/OBS CARE 350MIN Diagnoses Anemia requiring transfusions D64.9 Type 2 diabetes mellitus with hyperglycemia E11.65 Acute kidney injury superimposed on chronic kidney disease N17.9; N18.9 Generalized weakness R53.1
[2024-08-06] MEDS: FUROSEMIDE 40 MG/4 ML VIAL IV ONE (09:06)
[2024-08-06] MEDS: hydrALAZINE HCL 25 MG TAB PO SCH (09:06)
--- NOTE | 2024-08-06 09:47 | Nephrology Progress Note ---
Date of Service August 06, 2024 Assessment & Plan (1) Acute kidney injury superimposed on chronic kidney disease: (2) Generalized weakness: (3) CROCKETT (dyspnea on exertion): (4) Non-ST elevation [place] (NSTEMI): (5) Anemia requiring transfusions: (6) Secondary hyperparathyroidism: (7) Hypertension: Plan 79 year-old female with stage IV CKD, b/l cr 2.6 to 3.0 mg/dl with proteinuria with h/o hypertension, diabetes, admitted to the hospital with anemia and generalized weakness and volume overload. Received diuretics with improvement in BP and volume status but stopped as kidney function worsened. On admission cr was 3.7 which slightly improved over last few days but again worsened to 4.2 this morning. Blood pressure has been variable. Kidney function staying relatively stable without further worsening, electrolyte acceptable. . Clinically seems volume overloaded but denies significant shortness of breath. Overall she is net positive, blood pressure. He was she has started back on Lasix 40 mg IV twice a day this morning after holding for last 2 days. --Recommend changing Lasix to 40 mg once a day to avoid too aggressive diuresis and further worsening of kidney function. --If blood pressure remain elevated increase hydralazine to 50 mg 3 times daily. -- Monitor kidney function, accurate intake, output, aim for net negative. -- with underlying advanced CKD, she does have risk factor for further worsening of kidney function. No indication for dialysis at this time. Admission and Anticipated Discharge Date Admission Date: July 31, 2024 Caesar Velarde was seen and evaluated this morning. She reports respiratory status about the same, stating gets short of breath with activity but does not feel that has worsened. Blood pressure was better controlled yesterday but overnight and this morning has been running high. Urine output unmeasured. Review of Systems Review of Systems: Detail ROS was done and positives and negatives were mentioned above. Physical Exam Constitutional: WD/WN, vitals as above no acute distress Eyes: + anicteric sclerae Respiratory: normal respiratory effort; no respiratory distress Auscultation: + crackles Cardiovascular: Rate/Rhythm: regular rate and regular rhythm Heart Sounds: normal S1 and normal S2 Extremities: + edema (2 to 3 + b/l LE edema.) Skin: no rashes, warm and dry Neurologic: no focal motor deficits Psychiatric: Orientation: alert and oriented x 3 Affect: euthymic affect Results & Data Vital Signs (Past 12 Hours) Vital Signs Temp Pulse Pulse Resp BP BP Pulse Ox 08/06/24 07:45 36.7 C 63 18 206/42 H 98 08/06/24 04:34 36.6 C 67 18 170/67 H 93 08/06/24 01:23 172/68 H 08/05/24 23:00 75 08/05/24 22:46 37.0 C 75 18 187/72 H 95 O2 Del Method 08/06/24 07:45 Room Air 08/06/24 04:34 Room Air 08/06/24 01:23 08/05/24 23:00 08/05/24 22:46 Room Air PG Care Time/CCT Total # of Minutes Spent Total Time Spent with Patient: Total time spent is greater than 50% in coordination of care (as documented) at patient's floor/unit and/or counseling patient: Coding Level of Care Code 54796 SUB INP/OBS CARE 2/35MIN Diagnoses Acute kidney injury superimposed on chronic kidney disease N17.9; N18.9 Generalized weakness R53.1 CROCKETT (dyspnea on exertion) R06.09 Non-ST elevation AK (NSTEMI) I21.4 Anemia requiring transfusions D64.9 Secondary hyperparathyroidism N25.81 Hypertension I10
[2024-08-06] MEDS: hydrALAZINE HCL 20 MG/ML VIAL IV PRN (14:32)
[2024-08-06] MEDS: FUROSEMIDE 40 MG/4 ML VIAL IV SCH (17:52)
[2024-08-06] MEDS: hydrALAZINE TAB 50 MG TAB PO SCH (20:03)
[2024-08-07 07:21] LABS: Basophils # (auto) 0.03 K/uL (0.00-0.20); Basophils % (auto) 0.6 %; Eosinophils # (auto) 0.14 K/uL (0.00-0.50); Eosinophils % (auto) 2.6 %; Hematocrit (blood only) 25.3 % (37.0-47.0); Hemoglobin 7.9 g/dl (12.0-16.0); Immature Granulocytes # (auto) 0.06 K/uL (0.01-0.20); Immature Granulocytes % (auto) 1.1 %; Lymphocytes # (auto) 1.08 K/uL (1.20-3.40); Lymphocytes % (auto) 19.9 %; Mean Corpuscular Hemoglobin 27.2 pg (25.0-34.0); Mean Corpuscular Hgb Conc 31.2 g/dL (32.0-36.0); Mean Corpuscular Volume 87.2 fL (80.0-100.0); Mean Platelet Volume 10.9 fL (9.4-12.4); Monocytes # (auto) 0.47 K/uL (0.11-0.59); Monocytes % (auto) 8.6 %; Neutrophils # (auto) 3.66 K/uL (1.40-6.50); Neutrophils % (auto) 67.2 %; Platelet Count 147 K/uL (130-400); RDW Coefficient of Variation 17.5 % (11.5-14.5); RDW Standard Deviation 52.8 fL (36.4-46.3); White Blood Count 5.44 K/ul (4.8-10.8)
[2024-08-07 07:35] LABS: BUN Creatinine Ratio 17.8 (10-20); Creatinine Clr Calc Pharmacy 14.4 ml/min; Potassium 4.3 mmol/L (3.5-5.1)
--- NOTE | 2024-08-07 07:56 | Hospitalist Progress Note ---
Date of Service August 07, 2024 Assessment & Plan (1) Anemia requiring transfusions: (2) Type 2 diabetes mellitus with hyperglycemia: (3) Acute kidney injury superimposed on chronic kidney disease: (4) Generalized weakness: Plan Prachi is an 79-year-old female history of A-fib on Eliquis, NSTEMI with mild disease on cath 2019, CKD, DM who presents with suspected progressive chronic GI bleed and anemia with Hemoccult positive stool and hemoglobin 5.0. She has not had any hematemesis or epigastric pain. Chronic GI blood loss , iron deficiency anemia Hemoglobin last 10.5 01/2024 prior to Eliquis s/p 3 units with appropriate rise of hgb, No clinical bleeding, iron 15 starting on po iron GI consulted. Given underlying demand ischemia and relatively stable hemoglobin do not plan to do EGD/colonoscopy at this time, recommend following up as outpatient if hemoglobin remained stable. PPI twice daily continued Eliquis remains held Acute on Chronic HfpEF -given pts rise in Cr with diuresis, nephrology has been valuable in diuresis dosing - Nifedipine discontinued. Hydralazine PO substituted. - Low sodium diet MANUEL with CKD4 Nephrology consulted, after initial diuresis developed ATN, now improved and on daily diuretic dosing Nephrology following. Appreciate recommendations and care Type II DM Basal bolus regimen continued, adequate control on 08/02 Goal range [id number]. SSI loosened 08/05 for borderling hypoglycemia Demand ischemia, CAD, history of pacemaker, A-fib History of NSTEMI with mild obstructive disease on cath in 2019 Eliquis for A-fib held for GI bleed Hypertension Borderline renal artery stenosis on prior Dopplers, no intervention recommended at that time Lisinopril held, nifedipine discontinued, hydralazine uptrended Admission and Anticipated Discharge Date Admission Date: July 31, 2024 Subjective pt is doing well, wearing leg wraps, does feel that she has reduce edema to legs with wraps still does not feel at her baseline Physical Exam Physical Exam: cardiac is regular lungs are diminished at the bases but clear legs are with 2+ edema with wraps in place Results & Data Results & Data Vital Signs (Past 12 Hours) Vital Signs Temp Pulse Pulse Resp BP Pulse Ox O2 Del Method 08/07/24 07:25 97.7 F 60 16 204/43 H 94 Room Air 08/07/24 07:00 62 08/07/24 03:36 98.1 F 68 18 180/75 H 93 Room Air 08/06/24 23:00 60 08/06/24 22:54 98.2 F 62 18 183/71 H 97 Room Air 08/06/24 19:54 99.0 F 54 L 18 194/66 H 98 Room Air Laboratory Results review cbc review chemistry PG Care Time/CCT Total # of Minutes Spent Total Time Spent with Patient: Total time spent is greater than 50% in coordination of care (as documented) at patient's floor/unit and/or counseling patient: Coding Level of Care Code 44921 SUB INP/OBS CARE 3/50MIN Diagnoses Anemia requiring transfusions D64.9 Type 2 diabetes mellitus with hyperglycemia E11.65 Acute kidney injury superimposed on chronic kidney disease N17.9; N18.9 Generalized weakness R53.1
[2024-08-07 08:02] LABS: Basophilic Stippling 1+; Polychromasia 1+
[2024-08-07] MEDS: FUROSEMIDE 40 MG/4 ML VIAL IV SCH (08:46)
--- NOTE | 2024-08-07 09:43 | Nephrology Progress Note ---
Date of Service August 07, 2024 Assessment & Plan (1) Acute kidney injury superimposed on chronic kidney disease: (2) Generalized weakness: (3) CROCKETT (dyspnea on exertion): (4) Non-ST elevation IN (NSTEMI): (5) Anemia requiring transfusions: (6) Secondary hyperparathyroidism: (7) Hypertension: Plan 79 year-old female with stage IV CKD, b/l cr 2.6 to 3.0 mg/dl with proteinuria with h/o hypertension, diabetes, admitted to the hospital with anemia and generalized weakness and volume overload. Received diuretics with improvement in BP and volume status but stopped as kidney function worsened. On admission cr was 3.7 which worsened to 4.2 mg/dl kidney function slightly improved, electrolyte acceptable. Volume status improved, net negative more than 1 L. Blood pressure remained quite elevated. --Continue to monitor blood pressure with higher dose of hydralazine, an tihypertensive options are quite limited due to the fact that she has difficulty tolerating calcium channel cj, with history of hyperkalemia and MANUEL off of GORDY inhibitor/ARB and spironolactone. Since potassium has been normal if blood pressure remains high on higher dose of hydralazine, will start on spironolactone and if needed consider starting on potassium binder. --Recommend changing Lasix to 40 mg once a day for -- with history of bilateral renal artery stenosis noted on prior Doppler, will repeat Doppler and if any significant stenosis, will consider discussion with vascular surgery. -- Monitor kidney function, accurate intake, output, aim for net negative. -- with underlying advanced CKD, she does have risk factor for further worsening of kidney function. No indication for dialysis at this time. Admission and Anticipated Discharge Date Admission Date: July 31, 2024 Caesar Velarde was seen and evaluated. She reports overall feeling better, urinating more and it has been easier to take deep breathing. Net negative more than 1 L. Kidney function slightly improved, creatinine down to 3.4. Blood pressure remained quite elevated. Hemoglobin dropped to 7.9 Review of Systems Review of Systems: Detail ROS was done and positives and negatives were mentioned above. Physical Exam Constitutional: WD/WN, vitals as above no acute distress Eyes: + anicteric sclerae Respiratory: normal respiratory effort; no respiratory distress Auscultation: lungs clear to auscultation bilaterally Cardiovascular: Rate/Rhythm: regular rate and regular rhythm Heart Sounds: normal S1 and normal S2 Extremities: + edema (trace b/l LE edema neurology, improved.) Skin: no rashes, warm and dry Neurologic: no focal motor deficits Psychiatric: Orientation: alert and oriented x 3 Affect: euthymic affect Results & Data Vital Signs (Past 12 Hours) Vital Signs Temp Pulse Pulse Resp BP Pulse Ox O2 Del Method 08/07/24 07:25 36.5 C 60 16 204/43 H 94 Room Air 08/07/24 07:00 62 08/07/24 03:36 36.7 C 68 18 180/75 H 93 Room Air 08/06/24 23:00 60 08/06/24 22:54 36.8 C 62 18 183/71 H 97 Room Air PG Care Time/CCT Total # of Minutes Spent Total Time Spent with Patient: Total time spent is greater than 50% in coordination of care (as documented) at patient's floor/unit and/or counseling patient: Coding Level of Care Code 62945 SUB INP/OBS CARE 2/35MIN Diagnoses Acute kidney injury superimposed on chronic kidney disease N17.9; N18.9 Generalized weakness R53.1 CROCKETT (dyspnea on exertion) R06.09 Non-ST elevation IN (NSTEMI) I21.4 Anemia requiring transfusions D64.9 Secondary hyperparathyroidism N25.81 Hypertension I10
--- NOTE | 2024-08-07 10:23 | Ultrasound Report ---
RENAL DOPPLER ULTRASOUND OF THE RENAL ARTERIES CLINICAL HISTORY: poorly controlled BP, acute kidney injury. COMPARISON STUDY: No previous studies for comparison. TECHNIQUE: Color and duplex Doppler sonography of the abdominal aorta and renal arteries was macho auguste FINDINGS: Peak systolic velocity within the abdominal aorta was 106 cm/s. Exam is compromised given i nability to suspend respiration. Bilateral renal arteries and veins were patent. Segmental waveforms were within normal limits. Peak systolic velocity within the right renal artery was 183 cm/s peak sys tolic velocity within the left renal artery was 192 cm/s. There is moderate to severe bilateral renal cortical thinning. There is a stone within the gallbladder. No gallbladder wall thickening is presen t. IMPRESSION: 1. No sonographic evidence for renal artery stenosis. 2. Moderate to severe bilateral renal cortical thinning. ACT 112: Negative or not required by law. Electronically signed by: Deny New M.D. 08/07/2024 10:21 AM
[2024-08-07] MEDS ORDERED: FUROSEMIDE 40 MG/4 ML VIAL IV SCH (17:00)
--- NOTE | 2024-08-08 07:20 | Hospitalist Progress Note ---
Date of Service August 08, 2024 Assessment & Plan (1) Anemia requiring transfusions: (2) Type 2 diabetes mellitus with hyperglycemia: (3) Acute kidney injury superimposed on chronic kidney disease: (4) Generalized weakness: Plan Prachi is an 79-year-old female history of A-fib on Eliquis, NSTEMI with mild disease on cath 2018, CKD, DM who presents with suspected progressive chronic GI bleed and iron deficiency/acute blood loss anemia with Hemoccult positive stool and hemoglobin 5.0. She has not had any hematemesis or epigastric pain. Chronic GI blood loss , iron deficiency anemia Hemoglobin last 10.5 01/2024 prior to Eliquis s/p 3 units with appropriate rise of hgb, No clinical bleeding, iron 15 starting on po iron GI consulted. Given underlying demand ischemia and relatively stable hemoglobin do not plan to do EGD/colonoscopy at this time, recommend following up as outpatient if hemoglobin remained stable. PPI twice daily continued Eliquis remains held Acute on Chronic HfpEF - nephrology has been assistinfg in dosing diuretics - Nifedipine discontinued. Hydralazine PO substituted, dose increased 08/08. -cherelle wraps on legs - Low sodium diet MANUEL with CKD4 Nephrology consulted, after initial diuresis developed ATN, now improved and on daily diuretic dosing Nephrology following. Appreciate recommendations restart spironolactone, increase hydralazine 08/08-> continue lasix 40 mg daiy Type II DM Basal bolus regimen continued, adequate control on 08/02 Goal range [id number]. SSI loosened 08/05 for borderling hypoglycemia Demand ischemia, CAD, history of pacemaker, A-fib History of NSTEMI with mild obstructive disease on cath in 2019 Eliquis for A-fib held for GI bleed, held for one week restart 08/09/24 Hypertension Borderline renal artery stenosis on prior Dopplers, no intervention recommended at that time Lisinopril held, nifedipine discontinued, hydralazine/spironolactone started PT/OT eval- return home at dc Admission and Anticipated Discharge Date Admission Date: July 31, 2024 Subjective pt feels better does not realize much reduction in swelling of legs, cherelle wraps in place bp still not optimized, nephrology making med changes Physical Exam Physical Exam: cardiac is regular lungs are diminished at the bases but clear legs are with 2+ edema with wraps in place removed wraps, no open areas or significant dermatitis Results & Data Results & Data Vital Signs (Past 12 Hours) Vital Signs Temp Pulse Pulse Resp BP BP Pulse Ox 08/08/24 04:41 183/63 H 08/08/24 03:13 98.2 F 89 18 195/66 H 97 08/08/24 03:00 08/08/24 00:21 98.4 F 72 19 200/60 H 94 08/08/24 00:08 66 08/07/24 23:50 60 08/07/24 23:50 08/07/24 20:28 97.9 F 66 66 H 203/73 H 96 Pulse Ox O2 Del Method O2 Del Method 08/08/24 04:41 08/08/24 03:13 Room Air 08/08/24 03:00 98 Room Air 08/08/24 00:21 Room Air 08/08/24 00:08 08/07/24 23:50 08/07/24 23:50 Room Air 08/07/24 20:28 Room Air Laboratory Results review cbc review chemistry PG Care Time/CCT Total # of Minutes Spent Total Time Spent with Patient: Total time spent is greater than 50% in coordination of care (as documented) at patient's floor/unit and/or counseling patient: Coding Level of Care Code 53219 SUB INP/OBS CARE 3/50MIN Diagnoses Anemia requiring transfusions D64.9 Type 2 diabetes mellitus with hyperglycemia E11.65 Acute kidney injury superimposed on chronic kidney disease N17.9; N18.9 Generalized weakness R53.1
[2024-08-08 08:25] LABS: Basophils # (auto) 0.04 K/uL (0.00-0.20); Basophils % (auto) 0.7 %; Eosinophils # (auto) 0.11 K/uL (0.00-0.50); Hematocrit (blood only) 29.5 % (37.0-47.0); Hemoglobin 8.9 g/dl (12.0-16.0); Immature Granulocytes # (auto) 0.07 K/uL (0.01-0.20); Immature Granulocytes % (auto) 1.3 %; Lymphocytes # (auto) 1.07 K/uL (1.20-3.40); Lymphocytes % (auto) 19.1 %; Mean Corpuscular Hemoglobin 27.1 pg (25.0-34.0); Mean Corpuscular Hgb Conc 30.2 g/dL (32.0-36.0); Mean Corpuscular Volume 89.7 fL (80.0-100.0); Mean Platelet Volume 11.4 fL (9.4-12.4); Monocytes # (auto) 0.42 K/uL (0.11-0.59); Monocytes % (auto) 7.5 %; Neutrophils # (auto) 3.88 K/uL (1.40-6.50); Neutrophils % (auto) 69.4 %; Platelet Count 166 K/uL (130-400); RDW Coefficient of Variation 18.1 % (11.5-14.5); RDW Standard Deviation 56.2 fL (36.4-46.3); Red Blood Count 3.29 M/uL (4.20-5.40); White Blood Count 5.59 K/ul (4.8-10.8)
[2024-08-08] MEDS: hydrALAZINE TAB 50 MG TAB PO SCH (08:45)
[2024-08-08] MEDS: FERROUS SULFATE 325 MG TAB PO SCH (08:45)
[2024-08-08] MEDS: FUROSEMIDE 40 MG TAB PO SCH (08:46)
[2024-08-08 09:00] LABS: Albumin Level 3.3 gm/dl (3.4-5.0); Calcium 8.5 mg/dl (8.6-10.3); Potassium 4.3 mmol/L (3.5-5.1)
[2024-08-08] MEDS: PANTOprazole 40 MG TAB PO SCH (09:52)
--- NOTE | 2024-08-08 10:33 | Nephrology Progress Note ---
Date of Service August 08, 2024 Assessment & Plan (1) Acute kidney injury superimposed on chronic kidney disease: (2) Generalized weakness: (3) CROCKETT (dyspnea on exertion): (4) Non-ST elevation NM (NSTEMI): (5) Anemia requiring transfusions: (6) Secondary hyperparathyroidism: (7) Hypertension: Plan 79 year-old female with stage IV CKD, b/l cr 2.6 to 3.0 mg/dl with proteinuria with h/o hypertension, diabetes, admitted to the hospital with anemia and generalized weakness and volume overload. Received diuretics with improvement in BP and volume status but stopped as kidney function worsened. On admission cr was 3.7 which worsened to 4.2 mg/dl. Renal artery Doppler done yesterday showed no hemodynamically significant renal artery stenosis. kidney function slightly improved.., cr down to 3.3, electrolyte acceptable. Volume status improved, net negative 0.5 L. Blood pressure remained quite elevated. --start on spironolactone 25 mg daily, strictly follow low potassium diet, increase hydralazine to 100 mg 3 times daily. --Continue Lasix 40 mg once a day -- Monitor kidney function, accurate intake, output, aim for net negative. -- with underlying advanced CKD, she does have risk factor for further worsening of kidney function. No indication for dialysis at this time. Admission and Anticipated Discharge Date Admission Date: July 31, 2024 Caesar Velarde was seen and evaluated this morning. She reports overall feeling better, urinating more and it has been easier to take deep breathing. Net negative more than 0.5 L. Kidney function slightly improved, creatinine down to 3.3 9. Blood pressure remained quite elevated. Hemoglobin slightly improved. Review of Systems Review of Systems: Detail ROS was done and positives and negatives were mentioned above. Physical Exam Constitutional: WD/WN, vitals as above no acute distress Eyes: + anicteric sclerae Respiratory: normal respiratory effort; no respiratory distress Auscultation: lungs clear to auscultation bilaterally Cardiovascular: Rate/Rhythm: regular rate and regular rhythm Heart Sounds: normal S1 and normal S2 Extremities: + edema (trace b/l LE edema, improved.) Skin: no rashes, warm and dry Neurologic: no focal motor deficits Psychiatric: Orientation: alert and oriented x 3 Affect: euthymic affect Results & Data Vital Signs (Past 12 Hours) Vital Signs Temp Pulse Pulse Resp BP BP Pulse Ox 08/08/24 08:14 36.6 C 61 18 192/62 H 97 08/08/24 04:41 183/63 H 08/08/24 03:13 36.8 C 89 18 195/66 H 97 08/08/24 03:00 08/08/24 00:21 36.9 C 72 19 200/60 H 94 08/08/24 00:08 66 08/07/24 23:50 60 08/07/24 23:50 Pulse Ox O2 Del Method O2 Del Method 08/08/24 08:14 Room Air 08/08/24 04:41 08/08/24 03:13 Room Air 08/08/24 03:00 98 Room Air 08/08/24 00:21 Room Air 08/08/24 00:08 08/07/24 23:50 08/07/24 23:50 Room Air PG Care Time/CCT Total # of Minutes Spent Total Time Spent with Patient: Total time spent is greater than 50% in coordination of care (as documented) at patient's floor/unit and/or counseling patient: Coding Level of Care Code 97438 SUB INP/OBS CARE 2/35MIN Diagnoses Acute kidney injury superimposed on chronic kidney disease N17.9; N18.9 Generalized weakness R53.1 CROCKETT (dyspnea on exertion) R06.09 Non-ST elevation NM (NSTEMI) I21.4 Anemia requiring transfusions D64.9 Secondary hyperparathyroidism N25.81 Hypertension I10
[2024-08-08] MEDS: SPIRONOLACTONE 25 MG TAB PO SCH (10:49)
[2024-08-09 07:59] LABS: Basophils # (auto) 0.02 K/uL (0.00-0.20); Basophils % (auto) 0.4 %; Eosinophils # (auto) 0.09 K/uL (0.00-0.50); Eosinophils % (auto) 1.9 %; Hemoglobin 8.3 g/dl (12.0-16.0); Immature Granulocytes # (auto) 0.04 K/uL (0.01-0.20); Immature Granulocytes % (auto) 0.8 %; Lymphocytes # (auto) 0.89 K/uL (1.20-3.40); Lymphocytes % (auto) 18.9 %; Mean Corpuscular Hemoglobin 27.9 pg (25.0-34.0); Mean Corpuscular Hgb Conc 30.7 g/dL (32.0-36.0); Mean Corpuscular Volume 90.6 fL (80.0-100.0); Mean Platelet Volume 11.5 fL (9.4-12.4); Monocytes # (auto) 0.37 K/uL (0.11-0.59); Monocytes % (auto) 7.8 %; Neutrophils # (auto) 3.31 K/uL (1.40-6.50); Neutrophils % (auto) 70.2 %; Platelet Count 136 K/uL (130-400); RDW Coefficient of Variation 18.2 % (11.5-14.5); RDW Standard Deviation 59.7 fL (36.4-46.3); Red Blood Count 2.98 M/uL (4.20-5.40); White Blood Count 4.72 K/ul (4.8-10.8)
--- NOTE | 2024-08-09 08:22 | Nephrology Progress Note ---
Date of Service August 09, 2024 Assessment & Plan (1) Acute kidney injury superimposed on chronic kidney disease: (2) Generalized weakness: (3) CROCKETT (dyspnea on exertion): (4) Non-ST elevation MD (NSTEMI): (5) Anemia requiring transfusions: (6) Secondary hyperparathyroidism: (7) Hypertension: Plan 79 year-old female with stage IV CKD, b/l cr 2.6 to 3.0 mg/dl with proteinuria with h/o hypertension, diabetes, admitted to the hospital with anemia and generalized weakness and volume overload. Received diuretics with improvement in BP and volume status but stopped as kidney function worsened. On admission cr was 3.7 which worsened to 4.2 mg/dl. Renal artery Doppler done yesterday showed no hemodynamically significant renal artery stenosis. kidney function cr staying relatively stable 3.4 mg/dl, electrolyte acceptable. Volume status improved, net negative 0.5 L. Blood pressure remained quite elevated. --Increase spironolactone to 25 mg bid, strictly follow low potassium diet, increase hydralazine to 100 mg 3 times daily. If blood pressure remains elevated, may need to consider clonidine --Continue Lasix 40 mg once a day -- Monitor kidney function, accurate intake, output, aim for net negative. -- with underlying advanced CKD, she does have risk factor for further worsening of kidney function. No indication for dialysis at this time. -- Hold discharge at least until tomorrow and monitor for improvement in blood pressure with higher dose of spironolactone. Admission and Anticipated Discharge Date Admission Date: July 31, 2024 Caesar Velarde was seen and evaluated this morning. She reports overall feeling better, urinating more, denies SOB, LE edema improved. Net negative 1 L. Kidney function staying relatively stable with diuresis, creatinine 3.4 mg/dl . Blood pressure remained elevated. Potassium 4.5. Review of Systems Review of Systems: Detail ROS was done and positives and negatives were mentioned above. Physical Exam Constitutional: WD/WN, vitals as above no acute distress Eyes: + anicteric sclerae Respiratory: normal respiratory effort; no respiratory distress Auscultation: lungs clear to auscultation bilaterally Cardiovascular: Rate/Rhythm: regular rate and regular rhythm Heart Sounds: normal S1 and normal S2 Extremities: + edema (trace b/l LE edema, improved.) Skin: no rashes, warm and dry Neurologic: no focal motor deficits Psychiatric: Orientation: alert and oriented x 3 Affect: euthymic affect Results & Data Vital Signs (Past 12 Hours) Vital Signs Temp Pulse Pulse Resp BP Pulse Ox O2 Del Method 08/09/24 08:01 37.1 C 66 17 188/69 H 94 Room Air 08/09/24 07:29 69 08/09/24 02:45 36.6 C 90 20 158/54 H 95 Room Air 08/09/24 00:13 63 08/08/24 23:01 36.5 C 66 18 150/71 H 96 Room Air 08/08/24 22:40 Room Air PG Care Time/CCT Total # of Minutes Spent Total Time Spent with Patient: Total time spent is greater than 50% in coordination of care (as documented) at patient's floor/unit and/or counseling patient: Coding Level of Care Code 22579 SUB INP/OBS CARE 2/35MIN Diagnoses Acute kidney injury superimposed on chronic kidney disease N17.9; N18.9 Generalized weakness R53.1 CROCKETT (dyspnea on exertion) R06.09 Non-ST elevation MD (NSTEMI) I21.4 Anemia requiring transfusions D64.9 Secondary hyperparathyroidism N25.81 Hypertension I10
[2024-08-09] MEDS: APIXABAN 2.5 MG TAB PO SCH (08:26)
[2024-08-09 08:35] LABS: Albumin Level 3.1 gm/dl (3.4-5.0); BUN Creatinine Ratio 17.9 (10-20); Calcium 8.4 mg/dl (8.6-10.3); Creatinine Clr Calc Pharmacy 14.4 ml/min; Phosphorus 4.4 mg/dl (2.5-4.9); Potassium 4.6 mmol/L (3.5-5.1)
[2024-08-09] MEDS: IRON SUCROSE 200 MG in SODIUM CHLORIDE 0.9% 100 ML IV SCH (09:58)
[2024-08-09 10:41] VITALS: BP 164/69; RESP 19; TEMP 97.9; O2SAT 95
--- NOTE | 2024-08-09 11:20 | XRay Report ---
XR chest 1V portable CLINICAL HISTORY: CHF COMPARISON STUDY: 08/05/2024 FINDINGS: Stable pacemaker. Stable cardiomegaly with mild pulmonary vascular congestion. No effusion, consolidation, or pneumothorax. IMPRESSION: Stable mild CHF. ACT 112: Negative or not required by law. Electronically signed by: Hermes Arias M.D. 08/09/2024 11:18 AM
--- NOTE | 2024-08-09 12:35 | Discharge Summary ---
Discharge Summary Date of Service August 09, 2024 Principal Dx & Hospital Course #1 = Principal Diagnosis (1) Anemia requiring transfusions: (2) Type 2 diabetes mellitus with hyperglycemia: (3) Acute kidney injury superimposed on chronic kidney disease: (4) Generalized weakness: Plan Prachi is an 79-year-old female history of A-fib on Eliquis, NSTEMI with mild disease on cath 2019, CKD, DM who presents with suspected progressive chronic GI bleed and iron deficiency/acute blood loss anemia with Hemoccult positive stool and hemoglobin 5.0. She has not had any hematemesis or epigastric pain. Chronic GI blood loss , iron deficiency anemia Hemoglobin last 10.5 01/2024 prior to Eliquis s/p 3 units with appropriate rise of hgb, No clinical bleeding, iron 15 starting on po iron GI consulted. Given underlying demand ischemia and relatively stable hemoglobin do not plan to do EGD/colonoscopy at this time, recommend following up as outpatient if hemoglobin remained stable. PPI twice daily continued Eliquis remains held Acute on Chronic HfpEF - nephrology has been assistinfg in dosing diuretics - Nifedipine was previously discontinued but has been restarted for blood pressure control. Hydralazine has been added. -cherelle wraps on legs as needed - Low sodium diet MANUEL with CKD4 Nephrology consulted, after initial diuresis developed ATN, now improved and on daily diuretic dosing Nephrology following. Appreciate recommendations restart spironolactone, increase hydralazine 08/08-> continue lasix 40 mg daily Type II DM Basal bolus regimen continued, adequate control on 08/02 Goal range [id number]. SSI loosened 08/05 for borderling hypoglycemia -She will resume her usual diabetic management at discharge Demand ischemia, CAD, history of pacemaker, A-fib History of NSTEMI with mild obstructive disease on cath in 2019 Eliquis for A-fib held for GI bleed. This will be restarted at PCPs discretion Hypertension Borderline renal artery stenosis on prior Dopplers, no intervention recommende d at that time Lisinopril and Procardia initially held but subsequently restarted. Hydralazine/spironolactone started PT/OT eval- return home at dc Admission HPI Per Admitting Provider Prachi Rosa is a 79 year-old female with a medical history significant for CKD, gout, T2DM, HTN, paroxysmal atrial fibrillation who presented to the ED for weakness in her bilateral legs for the past week. Patient states that she had a pacemaker placed earlier this year, was later found to have paroxysmal atrial fibrillation and was subsequently started on Eliquis a few months ago. Since then, has had some intermittent dark stools and reportedly had a positive cologuard test in the same time period. Patient endorses feeling weak, states when she ambulates and then rests/sits down, it feels that her heart is "beating fast" for several minutes. Denies chest pain or SOB, but endorses a cough at times. No abdominal pain/nausea/vomiting. ED Course: -CXR, hemoccult + -CBC, CMP, TSH, BNP, Type/cross -Kcentra administered Discharge Exam General-alert and oriented x3, no fever, no chills HEENT-head atraumatic and normocephalic, pupils equal and reactive to light, extraocular muscles intact Neck-no lymphadenopathy or thyromegaly, trachea midline Chest-clear to auscultation. No rales, wheezing or rhonchi Cardiac-regular rate and rhythm, normal S1 and S2 Abdomen-normal bowel sounds, no hepatosplenomegaly Extremities-no cyanosis, clubbing, or edema Neuro-cranial nerves II through XII intact, motor and sensory function within normal limits, strength symmetrical, no focal deficits Psych-normal affect, normal mood Discharge Plan Discharge Items Patient Disposition: Home - Self-Care Reason For Visit: ANEMIA Discharge Diagnosis: Acute on chronic diastolic CHF, acute on chronic kidney disease stage IV, iron deficiency anemia requiring transfusion Activity: Resume your previous activity Non-emergency contact: Primary Care Provider and Pyrotechnist Call non-emergency contact if: you have any medication questions and your symptoms worsen Follow-up/Referrals: PCP,NO [Primary Care Provider] - Diet: Carb Consistent or DM2 and Heart Healthy Addtl Attending Provider Instructions: Hydralazine and spironolactone are new medications. Protonix has been prescribed to suppress stomach acid. Lasix dosage has been increased. Prescriptions have been sent to [facility] in [place]. Eliquis remains on hold for now Pending Studies at Discharge: No Stand-Alone Forms: [employer], Smoking Cessation Medications and DC Order Prescriptions: New nifedipine [Procardia XL] 30 mg Tablet Extended Release 24hr 90 mg PO QAM Qty: 30 0RF furosemide 40 mg Tablet 40 mg PO QAM Qty: 30 0RF spironolactone 25 mg Tablet 25 mg PO BID Qty: 60 0RF pantoprazole 40 mg Tablet,Delayed Release (Dr/Ec) 40 mg PO BID Qty: 60 0RF hydralazine 50 mg Tablet 100 mg PO TID Qty: 100 0RF ferrous sulfate 325 mg (65 mg iron) Tablet,Delayed Release (Dr/Ec) 325 mg PO QAM Qty: 30 0RF Continued patiromer calcium sorbitex 8.4 gram powder in packet 8.4 g PO DAILY Qty: 30 2RF terazosin 2 mg capsule 2 mg PO DAILY cholecalciferol (vitamin D3) 50 mcg (2,000 unit) capsule 50 mcg PO DAILY mometasone 0.1 % cream 1 applic topical DAILY PRN terconazole 0.4 % cream 1 appful vaginal QPM PRN latanoprost 0.005 % drops 1 drp ophthalmic (eye) DAILY insulin aspart U-100 [Novolog U-100 Insulin aspart] 100 unit/mL solution 1 sliding scale dose subcut USEASDIRECTD aspirin 81 mg tablet,chewable 81 mg PO DAILY Tresiba FlexTouch U-100 100 unit/mL (3 mL) insulin pen 50 unit subcut DAILY atorvastatin 20 mg tablet 80 mg PO DAILY febuxostat [Uloric] 40 mg tablet 40 mg PO 3XWK garlic 300 mg capsule 1,000 mg PO BID calcitriol 0.25 mcg capsule 0.25 mcg PO .COMPLEX Qty: 36 2RF Rx Instructions: 0.25 mcg orally every monday, monday, and monday; carvedilol 12.5 mg tablet See Rx Instructions PO BID Rx Instructions: 25 mg QAM and 12.5 mg in the evening; must administer with a meal/food Ultra CoQ10 75 mg capsule 50 mg PO DAILY lisinopril 5 mg tablet 5 mg PO DAILY Qty: 90 3RF Discontinued Eliquis 2.5 mg tablet 2.5 mg PO BID nifedipine 90 mg tablet extended release 30 mg PO DAILY furosemide 20 mg tablet 20 mg PO 3XWK Discharge Orders: Discharge Order- CHF (Routine); Ordered 08/09/24 Ordered By: Ed Pratt Admission Data Admit Date/Time: 07/31/24 23:56 Attending Provider: Ed Pratt Admit Provider: Nisha Urias Primary Care Provider: PCP,NO Other Providers: Karan Blas; Jamie Daily Jr; Elizabeth Alvarez Hospital Stay Data Consultations 07/31/24 22:44 ED Decision to Admit Stat 08/01/24 01:06 Consult Gastroenterology Routine 08/05/24 09:14 Consult Nephrology Routine Diagnostic Imagining Performed 08/05/24 10:12 US venous doppler LE BI Stat 08/07/24 08:15 US doppler renal [US duplex renal art/vein BI] Routine Pending Results Patient Have Any Pending Studies at Discharge: No Discharge Instructions Given to Patient (Per Discharging Provider) Hydralazine and spironolactone are new medications. Protonix has been prescribed to suppress stomach acid. Lasix dosage has been increased. Prescriptions have been sent to [facility] pharmacy in [place]. Eliquis remains on hold for now Total Time Total Time Spent Total Time Spent (In Minutes): 45 minutes Coding Level of Care Code 07983 INP/OBS DISCH >30 MIN Diagnoses Anemia requiring transfusions D64.9 Type 2 diabetes mellitus with hyperglycemia E11.65 Acute kidney injury superimposed on chronic kidney disease N17.9; N18.9 Generalized weakness R53.1
[2024-08-09 14:50] VITALS: PULSE 105
[2024-08-09] MEDS ORDERED: SPIRONOLACTONE 25 MG TAB PO SCH (21:00)
== END 2024-08-09 15:43 | disposition home or self-care (01) | DRG 811 ==
LOC: ED 19:49 → EDINP 23:56 → SUATTDRO 23:56 → EDINP 08-01 01:44 → 2S 08-01 13:15